=== PATIENT | female | born 1975 | race Caucasian/White ===

== ENCOUNTER 2024-11-11 02:12 | Day surgery (SDC) | payer OTHER, SELFPAY ==
[2024-11-06 09:48] VITALS: BMI 28.3
--- NOTE | 2024-11-06 10:00 | SUR.PREOP ---
Report to the Outpatient Waiting Room, entrance under the green pavilion located off [facility], at time 0630 on date 11/11/24. Planned Procedure Time: 0830.? Time changes happen often and if your time is changed the preop area will call you the afternoon before. - You and your visitor will be asked to self-screen and do not enter if you have any COVID symptoms. Please call surgeon if you need to reschedule. - A mask is optional within the hospital at this time. Patients may have clear liquids (water, carbonated beverages, clear teas, apple juice) until 3 hours prior to surgery with a maximum of 20 ounces. - No food from midnight until time of surgery and no smoking, or chewing tobacco (or any form of nicotine). No chewing gum, candy or mints. - Infants may have breast milk until 4 hours before surgery, formula 6 hours prior to surgery. - Children will be allowed to drink immediately following surgery.? If applicable, please bring a bottle or sippy cup to assist with drinking. Juice, water, soda, and popsicles are readily available.? For infants on formula, please bring formula the day of surgery.? Pacifiers are allowed. Take only the following medications with a SIP of water on the morning of surgery: levothyroxine, abilify, wellbutrin DO NOT STOP ANY OF YOUR OTHER PRESCRIPTION MEDICATIONS PRIOR TO SURGERY EXCEPT THE FOLLOWING Hold all vitamins and supplements for 3 days per anesthesiologist. Medications to discontinue per physician ____n/a___ Date to take last dose Please no make-up, nail libyan, hairspray, perfume, deodorant, or body powder the day of surgery.? No jewelry (including any body piercings) or valuables the day of surgery, leave them at home.? Please take a shower or bath the night before, or the morning of, surgery with an antibacterial soap.? Wear comfortable, loose fitting clothing.? Children are encouraged to wear pajamas. - Jewelry must be removed prior to entering the operating room.? Rings and piercings that are not removed may be cut off. - The hospital will not accept responsibility for valuables.? - Please leave all valuables, including medications, at home the day of surgery. If you are going home after surgery, a licensed sprinkler truck driver must drive you home.? - NO public transportation without another adult if you receive anesthesia. - We recommend that an adult stay with you for 24 hours following discharge. - We also recommend that you do not drive, make important decision, drink alcoholic beverages, or take any drugs that were not prescribed by your health care provider for at least 24 hours after your discharge time. For Pediatric surgeries, we recommend two adults accompany the child home. Follow any additional instructions given to you from your surgeon. Telephone instructions given to patient and asked if any additional questions and then verbalized understanding. Patient advised to call surgeon office or pre surgery nurse liaison [phone] if any additional questions.
--- OUTSIDE RECORDS SUMMARY | 2024-11-11 02:15 | XMS_ITS | Encounter Summary ---
Author Organization [facility] Address [address] [place] [address] Phone Care Team Providers Care Stove Carriage Operator Name Role Phone Felix Alves MD Primary Care Provider [phone] Reason for Visit * Reason Comments Medication Refill Encounter Details Date Type Department Care Team (Late st Contact Info) Description 01/29/2021 Refill [facility] - Family Medicine [facility] [address] [place] [address] Josue Pineda, ELECTROMECHANIC, CELLAR HAND [address] [address] Medication Refill Social History Tobacco Use Types Packs/Day Years Used Date Smoking Tobacco: Former Smokeless Tobacco: Never Alcohol Use Standard Drinks/Week Comments No 0 (1 standard drink = 0.6 oz pur e alcohol) PHQ-2 Answer Date Recorded PHQ-2 Score 0 01/15/2019 Comments No Sex and Gender Information Value Date Recorded Sex Assigned at Not on file Legal Sex Female 10:58 PM CDT Gender Identity Not on file Sexual Orientation Not on file documented as of this encounter Miscellaneous Notes * Telephone Encounter - Gardenia Reno RN - 01/31/2021 11:33 AM CDT Medication failed the protocol, provider to review and approve the medication order if appropriate. Requested Prescriptions Pending Prescriptions Disp Refills Synthroid 175 MCG Tablet [Pharmacy Med Name: SYNTHROID 175MCG TAB] 90 Tablet 3 Sig: TAKE 1 TABLET BY MOUTH DAILY Thyroid Hormones Protocol Failed - 01/29/2021 10:13 PM Failed - Normal TSH in past 12 months No results found for: TSH Passed - No test in the past 12 months or most recent test was negative Passed - Visit with relevant provider in past 12 months or upcoming 90 days Recent Visits Date Type Provider Dept 07/01/20 Office Visit Felix Alves MD [facility] 04/06/20 Telemedicine Josue Pineda APN, [facility] Showing recent visits within past 365 days and meeting all other requirements Future Appointments No visits were found meeting these conditions. Showing future appointments within next 90 days and meeting all other requirements Passed - No active on record documented in this encounter Plan of Treatment Upcoming Encounters Date Type Department Care Team (Late st Contact Info) Description 11/12/2024 9:30 AM CDT Office Visit [facility] - Family Medicine [facility] [address] [place] [address] Felix Alves MD [address] [address] documented as of this encounter Visit Diagnoses Diagnosis Hypothyroidism, unspecified type documented in this encounter Additional Health Concerns Infection Onset Date Last Indicated Resolved Time COVID - 19 Confirmed 03/14/2021 03/23/2021 021 12:16 AM ENERGY MANAGER Assessment Noted Time PHQ-9 Depression Total Score: 0 11/23/19 19 11:02 AM CDT documented as of this encounter Care Teams Stove Carriage Operator Relationship Specialty Start Date End Date Felix Alves MD [address] [address] PCP - General Family Medicine 04/19/15 documented as of this encounter
--- OUTSIDE RECORDS SUMMARY | 2024-11-11 02:15 | XMS_ITS | Encounter Summary ---
Author Organization [facility] Address [address] [place] [address] Phone Care Team Providers Care Salvage Mechanic Name Role Phone Felix Alves MD Primary Care Provider [phone] Reason for Visit * Reason Comments Medication Refill Encounter Details Date Type Department Care Team (Late st Contact Info) Description 08/29/2021 Refill [facility] [address] [place] [address] Felix Alves MD [address] [address] Medication Refill Social History Tobacco Use Types Packs/Day Years Used Date Smoking Tobacco: Former Smokeless Tobacco: Never Alcohol Use Standard Drinks/Week Comments No 0 (1 standard drink = 0.6 oz pur e alcohol) PHQ-2 Answer Date Recorded Total Score - Questions 1-9 0 03/07 Education Answer Date Recorded What is the highest level of school you have completed or the highest degree you have received? Associate degree: occupational, technical, or vocational program 03/22/2021 Comments No Sex and Gender Information Value Date Recorded Sex Assigned at Not on file Legal Sex Female 10:58 PM CDT Gender Identity Not on file Sexual Orientation Not on file documented as of this encounter Miscellaneous Notes * Telephone Encounter - Gardenia Reno RN - 08/30/2021 11:05 AM CDT Medication failed the protocol, provider to review and approve the medication order if appropriate. Requested Prescriptions Pending Prescriptions Disp Refills buPROPion (WELLBUTRIN) 300 MG TABLET SR 24 HR XL tablet [Pharmacy Med Name: buPROPion HCl ER (XL) 300 MG Oral Tablet Extended Release 24 Hour] 100 Tablet 2 Sig: TAKE 1 TABLET BY MOUTH EVERY MORNING Bupropion (6 Month Refill Only) Protocol Failed - 08/29/2021 10:49 AM Failed - Has an encounter in the past 6 months with a depression or anxiety visit diagnosis Passed - No test in the past 12 months or most recent test was negative Passed - No active on record Passed - Visit with relevant provider in past 6 months or upcoming 90 days Recent Visits Date Type Provider Dept 03/22/21 Telemedicine Vicky Rose APRN, [facility] Showing recent visits within past 182 days and meeting all other requirements Future Appointments No visits were found meeting these conditions. Showing future appointments within next 90 days and meeting all other requirements Passed - Patient has established therapy with Bupropion for at least 6 months documented in this encounter Plan of Treatment Upcoming Encounters Date Type Department Care Team (Late st Contact Info) Description 11/12/2024 9:30 AM CDT [facility] [address] [place] [address] Felix Alves MD [address] [address] documented as of this encounter Visit Diagnoses Diagnosis Depression, unspecified depression type documented in this encounter Additional Health Concerns Assessment Noted Time PHQ-9 Depression Total Score: 0 03/22/20 21 10:31 AM PHYSICS TUTOR documented as of this encounter Care Teams Salvage Mechanic Relationship Specialty Start Date End Date Felix Alves MD [address] [address] PCP - General Family Medicine 04/19/15 documented as of this encounter
--- OUTSIDE RECORDS SUMMARY | 2024-11-11 02:15 | XMS_ITS | Encounter Summary ---
Author Organization [facility] Address [address] [place] [address] Phone Care Team Providers Care Waste Recycler Name Role Phone Felix Alves MD Primary Care Provider [phone] Reason for Visit * Reason Comments Medication Refill Encounter Details Date Type Department Care Team (Late st Contact Info) Description 12/19/2021 Refill [facility] [address] [place] [address] Felix Alves MD [address] [address] Medication Refill Social History Tobacco Use Types [...] Telephone Encounter - Gardenia Reno RN - 12/20/2021 9:48 AM CDT Medication failed the protocol, provider to review and approve the medication order if appropriate. Requested Prescriptions Pending Prescriptions Disp Refills Synthroid 175 MCG Tablet [Pharmacy Med Name: SYNTHROID 175MCG TAB] 100 Tablet 0 Sig: TAKE 1 TABLET BY MOUTH DAILY Thyroid Hormones Protocol Failed - 12/19/2021 2:33 PM Failed - Normal TSH in past 12 months No results found for: TSH Passed - No test in the past 12 months or most recent test was negative Passed - Visit with relevant provider in past 12 months or upcoming 90 days Recent Visits Date Type Provider Dept 03/22/21 Telemedicine Vicky Rose APRN, RAILROAD CAR REPAIR SUPERVISOR [facility] Showing recent visits within past 365 days [...] Description 11/12/2024 9:30 AM CDT Office Visit [facility] - Family Medicine [facility] [address] [place] [address] Felix Alves MD [address] [address] documented as of this encounter Visit Diagnoses Diagnosis Hypothyroidism, unspecified type documented in this encounter Additional Health Concerns Assessment Noted Time PHQ-9 Depression Total Score: 0 03/22/20 21 10:31 AM ELEMENTARY SUPERVISOR documented as of this encounter Care Teams Waste Recycler Relationship Specialty Start Date End Date Felix Alves MD [address] [address] PCP - General Family Medicine 04/19/15 documented as of this encounter
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
--- OUTSIDE RECORDS SUMMARY | 2024-11-11 02:16 | XMS_ITS | Encounter Summary ---
Author Organization [facility] Address [address] [place] [address] Phone Care Team Providers Care Suede Cleaner Name Role Phone Felix Alves MD Primary Care Provider [phone] Reason for Visit * Reason Comments Medication Refill Encounter Details Date Type Department Care Team (Late st Contact Info) Description 03/03/2022 Refill [facility] Family Medicine [facility] [address] [place] [address] Felix Alves MD [address] [address] Medication Refill Social History Tobacco Use Types [...] encounter Miscellaneous Notes * Telephone Encounter - Monisha Mims RMA - 03/06/2022 2:20 PM CDT Pt declined scheduling at this time * Telephone Encounter - Felix Alves MD - 03/03/2022 11:39 AM CDT Schedule her to see me or Josue for follow-up. Thanks! * Telephone Encounter - Gardenia Reno RN - 03/03/2022 11:32 AM CDT Needs appt with PCP/PIZZA HUT ASSISTANT * Telephone Encounter - Gardenia Reno RN - 03/03/2022 11:32 AM CDT Medication failed the protocol, provider to review and approve the medication order if appropriate. Requested Prescriptions Pending Prescriptions Disp Refills levothyroxine (SYNTHROID) 175 MCG Tablet [Pharmacy Med Name: LEVOTHYROXINE 175 MCG TABLET] 30 Tablet 0 Sig: TAKE 1 TABLET BY MOUTH EVERY DAY Thyroid Hormones Protocol Failed - 03/03/2022 9:34 AM Failed - Normal TSH in past 12 months No results found for: TSH Passed - No test in the past 12 months or most recent test was negative Passed - Visit with relevant provider in past 12 months or upcoming 90 days Recent Visits Date Type Provider Dept 03/22/21 Telemedicine Vicky Rose APRN, RIB PULLER [facility] Showing recent visits within past [...] Description 11/12/2024 9:30 AM CDT Office Visit [facility] - Family Medicine - [place] [address] [place] [address] Felix Alves MD [address] [address] documented as of this encounter Visit Diagnoses Diagnosis Hypothyroidism, unspecified type documented in this encounter Additional Health Concerns Assessment Noted Time PHQ-9 Depression Total Score: 0 03/22/20 21 10:31 AM DIRECTOR GEOPHYSICAL LABORATORY documented as of this encounter Care Teams Suede Cleaner Relationship Specialty Start Date End Date Felix Alves MD [id number] [address] PCP - General Family Medicine 04/19/15 documented as of this encounter
--- OUTSIDE RECORDS SUMMARY | 2024-11-11 02:16 | XMS_ITS | Referral Summary ---
Author Organization [address] Address [address] [place] [id number] Care Team Providers Care Manugrapher Name Role Phone Felix Alves MD Primary Care Provider [phone] Hannah Dallas HHA Unavailable Allergies Active Allergy Reactions Criticality Noted Date Comments Ciprofloxacin Rash Reaction: Rash, Latex Itching Low Reaction: Itching, Medications buPROPion XL (WELLBUTRIN XL) 300 mg 24 hr tablet 06/25/2020 Active Synthroid 175 mcg tablet 06/26/2020 Active cyclobenzaprine (FLEXERIL) 5 mg tablet TAKE 1 TABLET BY MOUTH THREE TIMES A DAY NEEDED FOR MUSCLE SPASMS 07/01/2020 Active sertraline (ZOLOFT) 50 mg tablet Take 1 tablet (50 mg total) by mouth daily 08/01/2022 Active Active Problems Problem Noted Date Diagnosed Date Chest pain 07/01/2020 Mood disorder 11/22/2018 Obesity, unspecified 12/11/2016 Chronic fatigue 12/31/2015 Hypothyroidism 09/20/2013 Overview (07/24/2020): HYPOTHYROIDISM NOS Social History Tobacco Use Types Packs/Day Years Used Date Smoking Tobacco: Never Tobacco Cessation:Counseling Given: Not Answered Alcohol Use Standard Drinks/Week Comments No 0 (1 standard drink = 0.6 oz pur e alcohol) Comments Unknown Sex and Gender Information Value Date Recorded Sex Assigned at Not on file Legal Sex Female 2:52 PM MOTORCYCLE TESTER Gender Identity Not on file Sexual Orientation Not on file Last Filed Vital Signs Vital Sign Reading Time Taken Comments Blood Pressure 128/82 09/26/2022 10:54 AM CDT Pulse 67 09/26/2022 10:54 AM CDT Temperature 36.7 C (98 F) 09/26/2022 10:54 AM CDT Respiratory Rate 16 09/26/2022 10:54 AM CDT Oxygen Saturation 98% 09/26/2022 10:54 AM CDT Inhaled Oxygen Concentration - - Weight 77.1 kg (170 lb) 11/22/2022 1:02 PM CDT Height 160 cm (5' 3) 11/22/2022 1:02 PM CDT Body Mass Index 30.11 11/22/2022 1:02 PM CDT Plan of Treatment Not on file Procedures Procedure Name Priority Date/Time Associated Diagnosis Comments DIAGNOSTIC MAMMOGRAM BILATERAL W KAPIL Schedule Routine, Read Routine (OP Routine) 10/03/2022 11:07 AM CDT Localized enlarged lymph nodes from Last 3 Months or Most Recently Relevant to Health Maintenance Results * Diagnostic Mammogram Bilateral W Kapil (10/03/2022 11:07 AM CDT) Anatomical Region Laterality Modality Breast Bilateral Mammography 10/03/2022 12:1 0 PM CDT Impressions 10/03/2022 12:10 PM CDT 1. No suspicious findings identified on mammogram or sonogram to account for the palpable abnormality of concern in the axillary tail of the left breast. Only prominent fatty tissue is seen without suspicious masses. No additional specific workup or follow-up is recommended for this finding. Any further management at this time should be based on clinical assessment. 2. No suspicious findings are identified on mammogram or sonogram to account for patient's bilateral nipple discharge. The patient reports this is intermittent, and mostly occurs around her period. This is almost certainly benign and physiologic. The patient was instructed to consult in case the discharge becomes clear or bloody. 3. Probably benign oval hypoechoic mass with circumscribed margins at the 7 o'clock position of the right breast 7 cm from the nipple, measuring 3 mm. Follow-up is recommended in 6 months with right diagnostic mammogram and sonogram to document stability. BI-RADS: 3 - Probably benign. I discussed the findings and recommendations with the patient at time of the examination. Electronically signed by: ROCAEL Corey 10/03/2022 12:10 PM CDT EXAMINATION: US BREAST BILATERAL LIMITED, DIAGNOSTIC MAMMOGRAM BILATERAL W KAPIL ORDERING HEALTHCARE PROVIDER: HANNAH DALLAS HISTORY: 46-year-old woman comes in today for evaluation of a lump in the left breast, and bilateral nipple discharge. The patient reports palpable lump in the axillary tail of the left breast has been present for approximately 13 years with minimal change. The nipple discharge is described as beige and color. COMPARISON: Bilateral diagnostic mammograms dated 08/20/2009. TECHNIQUE: CC and MLO views of both breasts were obtained with digital technique using digital breast tomosynthesis with C view. Computer aided detection was utilized. Targeted sonographic examination of both breasts was performed real-time grayscale images and color Doppler. FINDINGS: MAMMOGRAPHIC FINDINGS: There is scattered fibroglandular tissue There is a small oval low-density mass with circumscribed margins at approximately the 7 o'clock position of the right breast 7 cm from the nipple, measuring approximately 4 mm. There is no associated architectural distortion or suspicious macro calcifications. No other suspicious findings are identified in the right breast. A marker was placed on the left breast over the area of probable concern, which corresponds to the axillary tail. There is prominent fatty tissue at this level without new suspicious findings. Overall, there are no new suspicious findings in the left breast. SONOGRAPHIC FINDINGS: Targeted sonographic examination of the left breast is performed at the 2 o'clock position 19 cm from the nipple, corresponding to the area of palpable concern. At this level only benign fatty tissue and fibroglandular tissue is seen without suspicious solid or cystic masses. Targeted sonographic examination of the subareolar aspects of the right and left breasts demonstrates no abnormal ducts, and no suspicious masses. Targeted sonographic examination of the right breast at the 7 o'clock position 7 cm from the nipple demonstrates an oval hypoechoic mass with circumscribed margins that is wider than taller, measuring 3 x 3 x 2 mm. There is no posterior acoustic enhancement or shadowing, and no internal blood flow seen on color Doppler. Hannah Dallas HHA IMG MAMMO PROCEDURES Fi nal Result from Last 3 Months or Most Recently Relevant to Health Maintenance Insurance BLUE ACCESS OOS BLUE ACCESS OOS BLUE ACCESS OOS Care Teams Manugrapher Relationship Specialty Start Date End Date Felix Alves MD [address] [facility] [address] [address] PCP - General 08/28/07 Hannah Dallas NP 2 [facility] [address] [address] Nurse Practitioner Obstetrics and Gynecology 10/10/22
--- OUTSIDE RECORDS SUMMARY | 2024-11-11 02:16 | XMS_ITS | Clinical Summary ---
Author Organization [address] Address [address] [place] [id number] Care Team Providers Care Global Upstream Marketing Manager Name Role Phone Felix Alves MD Primary Care Provider [phone] Hannah Dallas GRIEVANCE COORDINATOR Unavailable [phone] Allergies Active Allergy Reactions Criticality Noted Date [...] 12/31/2015 Hypothyroidism 09/20/2013 Overview (07/24/2020): HYPOTHYROIDISM NOS Surgical History Surgery Date Site/Laterality Comments CHOLECYSTECTOMY Cholecystectomy TONSILLECTOMY Tonsillectomy OTHER SURGICAL HISTORY D&C TUBAL LIGATION 05/07/2006 Bilateral tubal ligation OTHER SURGICAL HISTORY section x3 Medical History Medical History Date Comments Hypothyroidism hypothyroidism Hx Other Medical Lt bunion Hx Other Medical myringectomy Anxiety disorder Anxiety Hx Other Medical Septoplasty Family History Medical History Relation Name Comments Other Father Alive and well; Other Mother Alive and well; Breast cancer Paternal Grandmother Other Sister 2 Alive and well; Relation Name Status Comments Father Alive Mother Alive Paternal Grandmother Sister 1 Alive Sister 2 Social History Tobacco Use Types Packs/Day Years Used Date Smoking Tobacco: Never Tobacco Cessation:Counseling Given: Not Answered Alcohol Use Standard Drinks/Week Comments No 0 (1 standard drink = 0.6 oz pur e alcohol) Comments Unknown Sex and Gender Information Value Date Recorded Sex Assigned at Not on file Legal Sex Female 2:52 PM MEDICAL RECORD SPECIALIST Gender Identity Not on file Sexual Orientation Not on file Obstetrics History Para Term AB IAB SAB Ectopic Multiple Livin g Live Births 3 3 3 Date Outcome GA Total Labor Labor/2nd/3rd Weight Sex Type Anes PTL Summer A1 A5 Name Clin Term Term Term Last Filed Vital Signs Vital Sign Reading [...] 11/22/2022 1:02 PM CDT Plan of Treatment Health Maintenance Due Date Last Done Comments Cervical Cancer Screening 1977 Colon Cancer Screening-Colonoscopy 1977 Depression Screening 1977 Hepatitis C Screening 1977 DTaP/Tdap/Td Vaccine (1 - Tdap) 1988 Hepatitis B Screening 11/19/1995 Regular Well Visit/Exam 18-64 11/19/1995 Breast Cancer Screening-Mammogram 10/04/2023 10/03/2022, 10/03/2022 Influenza Vaccine (Season Ended) 2025 04/05/2015 HPV Vaccines Aged Out No longer eligi ble based on patient's age to complete this topic Pneumococcal vaccine <65 Aged Out No longer eligible based on patient's age to complete this topic Procedures Procedure Name Priority Date/Time Associated Diagnosis [...] flow seen on color Doppler. Hannah Dallas NP IMG MAMMO PROCEDURES Fi nal Result from Last 3 Months or Most Recently Relevant to Health Maintenance Insurance [facility] O[facility] evly ACCESS OOS [facility] Care Teams Global Upstream Marketing Manager Relationship Specialty Start Date End Date Felix Alves MD [address] [address] PCP - General 08/28/07 Hannah Dallas NP 2 [facility] [address] [place] [address] Nurse Practitioner Obstetrics and Gynecology 10/10/22
--- OUTSIDE RECORDS SUMMARY | 2024-11-11 02:16 | XMS_ITS | Encounter Summary ---
Author Organization [facility] Address [address] [place] [address] Phone Care Team Providers Care Combination Worker Name Role Phone Felix Alves MD Primary Care Provider [phone] Reason for Referral * Radiology Services (Routine) - Closed Specialty Diagnoses / Procedures Referred By Contac t Referred To Contact Radiology Diagnoses Abnormal mammogram Procedures AMANDA DIAG BILATERAL DIGITAL W CAD W TRISTAN Felix Alves MD #[address] [address] Phone: tel: fax: Referral ID Status Reason Start Date Expiration Date Visits Re quested Visits Authorized [id number] Closed 08/26/2024 1 1 Encounter Details Date Type Department Care Team (Late st Contact Info) Description 08/26/2024 Transcribe Orders [facility] Mammography [address] [place] [address] Felix Alves MD #[address] [address] Abnormal mammogram (Primary Dx) Social History Tobacco Use Types Packs/Day Years Used Date Smoking Tobacco: Former Smokeless Tobacco: Never Alcohol Use Standard Drinks/Week Comments No 0 (1 standard drink = 0.6 oz pur e alcohol) PHQ-2 Answer Date Recorded Total Score - Questions 1-9 8 03/0 08/2024 Education Answer Date Recorded What is the [...] on file documented as of this encounter Plan of Treatment Upcoming Encounters Date Type Department Care Team (Late st Contact Info) Description 11/12/2024 9:30 AM CDT Office Visit [facility] - Family Medicine - [place] [address] [place] [address] Felix Alves MD [address] [address] documented as of this encounter Results * AMANDA DIAG BILATERAL DIGITAL W CAD W TRISTAN (08/23/2024 8:50 AM CDT) Anatomical Region Laterality Modality breast Bilateral Mammography 08/23/2024 8:30 AM CDT Narrative 09/01/2024 2:46 PM CDT - AMANDA DIAG BILATERAL DIGITAL W CAD W TRISTAN BILATERAL DIGITAL DIAGNOSTIC MAMMOGRAM 3D/2D WITH CAD WITH MEDIOLATERAL OBLIQUE CRANIOCAUDAL: 08/23/2024 The study was acquired using digital technology and interpreted from soft copy. Current study was also evaluated with ICAD version 7.2. 2D digital mammographic views, as well as 3D digital tomosynthesis were performed in the CC and MLO projections. CLINICAL: Diagnostic study. Diagnostic follow-up per outside imaging recommendations of right breast; BIRADS-3. Annual due. No personal history of cancer. No family history of breast cancer. COMPARISONS: Comparison is made to exams dated: 10/03/2022 [facility] and 07/03/2011 [facility]. BREAST TISSUE:There are scattered areas of fibroglandular density. FINDINGS: This examination was initially performed as a screening mammogram, but was changed to a diagnostic mammogram as it became evident that the prior examination was a BI-RADS 3. There is a stable subcentimeter mass at the 7 o'clock position of the right breast, middle depth. No other significant masses, calcifications, or other findings are seen in either breast. There has been no significant interval change. IMPRESSION: INCOMPLETE: NEED ADDITIONAL IMAGING EVALUATION Stable mass in the right breast at the 7 o'clock position. An immediate follow-up is recommended with right breast sonography. The results and recommendations were discussed with the patient. Electronically signed by: Uma Espinosa M.D. ll/:09/01/2024 11:37:48 Burrer Machine(s): RT Israel(R)(M), [facility] letter sent: Additional Imaging Reading location: [facility] Mammogram BI-RADS: Category 0: Incomplete: Need Additional Imaging Evaluation Procedure Note Uma Espinosa MD - 09/01/2024 - AMANDA DIAG BILATERAL DIGITAL W CAD W TRISTAN BILATERAL DIGITAL DIAGNOSTIC MAMMOGRAM 3D/2D WITH CAD WITH MEDIOLATERAL OBLIQUE CRANIOCAUDAL: 08/23/2024 The study was acquired using digital technology and interpreted from soft copy. Current study was also evaluated with ICAD version 7.2. 2D digital mammographic views, as well as 3D digital tomosynthesis were performed in the CC and MLO projections. CLINICAL: Diagnostic study. Diagnostic follow-up per outside imaging recommendations of right breast; BIRADS-3. Annual due. No personal history of cancer. No family history of breast cancer. COMPARISONS: Comparison is made to exams dated: 10/03/2022 [facility] and 07/03/2011 [facility]. BREAST TISSUE:There are scattered areas of fibroglandular density. FINDINGS: This examination was initially performed as a screening mammogram, but was changed to a diagnostic mammogram as it became evident that the prior examination was a BI-RADS 3. There is a stable subcentimeter mass at the 7 o'clock position of the right breast, middle depth. No other significant masses, calcifications, or other findings are seen in either breast. There has been no significant interval change. IMPRESSION: INCOMPLETE: NEED ADDITIONAL IMAGING EVALUATION Stable mass in the right breast at the 7 o'clock position. An immediate follow-up is recommended with right breast sonography. The results and recommendations were discussed with the patient. Electronically signed by: Uma Espinosa M.D. ll/:09/01/2024 11:37:48 Burrer Machine(s): Melody Almanza RT(R)(M), [facility] letter sent: Additional Imaging Reading location: [facility] Mammogram BI-RADS: Category 0: Incomplete: Need Additional Imaging Evaluation us Felix Alves MD IMG MAMMO ORDERABLES Kathi l Result documented in this encounter Visit Diagnoses Diagnosis Abnormal mammogram Abnormal mammogram, unspecified Abnormal mammogram- Primary Abnormal mammogram, unspecified documented in this encounter Additional Health Concerns Assessment Noted Time PHQ-9 Depression Total Score: 8 07/09/19 25 11:12 AM ORDER FULFILLMENT SPECIALIST documented as of this encounter Care Teams Combination Worker Relationship Specialty Start Date End Date Felix Alves MD [address] [place] [address] PCP - General Family Medicine 04/19/15 documented as of this encounter
--- OUTSIDE RECORDS SUMMARY | 2024-11-11 02:16 | XMS_ITS | Encounter Summary ---
Author Organization [facility] Address [address] [place] [address] Phone Care Team Providers Care Pricing Strategist Name Role Phone Felix Alves MD Primary Care Provider [phone] Reason for Visit * Reason Comments Medication Refill Encounter Details Date Type Department Care Team (Late st Contact Info) Description 04/03/2022 Refill [facility] - Family Medicine [facility] [address] [place] [address] Felix Alves MD #[address] [address] Medication Refill Social History Tobacco Use Types [...] encounter Miscellaneous Notes * Telephone Encounter - Brenda Hein RN - 04/03/2022 11:35 AM CASTING ASSOCIATE Patient needs appointment with provider. ING ASSOCIATE documented in this encounter Plan of Treatment Upcoming Encounters Date Type Department Care Team (Late st Contact Info) Description 11/12/2024 9:30 AM CDT Office Visit [facility] - Family [facility] [address] [place] [address] Felix Alves MD #[address] [address] documented as of this encounter Visit Diagnoses Diagnosis Hypothyroidism, unspecified type documented in this encounter Additional Health Concerns Assessment Noted Time PHQ-9 Depression Total Score: 0 03/22/20 21 10:31 AM CASTING ASSOCIATE documented as of this encounter Care Teams Pricing Strategist Relationship Specialty Start Date End Date Felix Alves MD #[address] [address] PCP - General Family Medicine 04/19/15 documented as of this encounter
--- OUTSIDE RECORDS SUMMARY | 2024-11-11 02:16 | XMS_ITS | Data Portability ---
Author Organization [facility] Address [address] [place] [address] [place] [address] Assessment Encounter Date Assessment Date Assessment LastModified by Organization Details LastModified Time 08/28/2022 08/28/2022 Annual gynecological exam performed. Patient will come back in a year unless there are new symptoms. [email or web address] Not available 08/28/2022 11:01:05 10/08/2023 10/08/2023 Annual gynecological exam performed. Patient will come back in a year unless there are new symptoms. Not available 10/08/2023 09:16:01 Plan of Treatment Reminders Order Date Submit Date Provider Last Modified By Organization Details Last Modified Time Details Appointments SURG Hysterosc opy 2024 08:30A Ac DEL REAL MD Not available Not available Not available Lab None recorded. Referral None recorded. Procedures None recorded. Surgeries hysterosc opy, with endometri al ablation (SURG) 2024 025 [email or web address] Shaan Del Real MD, [address], [place], [address], 11/10/2024 15:00:58 Imaging US, pelvis 2024 025 [email or web address] [facility], [address], [address], [place], [address], 08/12/2024 13:38:03 US, transvagi nal 2024 025 MAGED Emery, [address], [address], [place], [address], 08/12/2024 14:12:10 MAMMO, diagnosti c, digital, bilateral 2022 023 [facility], [address] [facility] , [place], [address], 10/03/2022 13:17:05 US, breast, bilateral , w/ axilla 2022 023 [facility], [address] [facility] , [place], [address], 10/03/2022 13:15:42 Medication Orders Nextstell is 3 mg-14.2 mg (28) tablet 2024 025 [id number], [address], [place], [id number], 07/21/2024 13:58:06 Valtrex 1 gram tablet 2023 024 [facility]/Pharmacy #[id number], [address], [place], [address], 10/08/2023 11:46:22 fluconazo le 150 mg tablet [address]/Pharmacy #[id number], [address], [place], [address], 10/08/2023 09:16:15 Bactrim DS 800 mg-160 mg tablet [address]/Pharmacy #[id number], [address], [place], [address], 10/08/2023 09:16:20 Patient TargetsNo targets recorded. Patient InstructionsNo instructions recorded. Reason for Referral None Reported. Results Created Date Observation Date Name Description Value Unit Range Abnormal Flag Note LastModifiedBy Organization Detail LastModifiedTime 08/29/19 23 08/28/2022 IMAGE GUIDE D PAP AND HPV REGAR DLESS image guided Pap, HPV regardless of Pap result SEE RESULT S BELOW CASE REPOR T: Cytol ogy Gynec ologi radha Repor t Case: [id number] Autho shane carmen Provi arik: Hannah Dallas, STACIE Elkins cted: 08/28 1518 Order ing Locat ion: [place] Patho ksenia Recei dinesh: 08/29 0117 First Scree n: Wanda Amaral Speci men: Scree vaibhav Pap - Image d, Cervi x STATE MENT OF ADEQU ACY: Satis facto ry for evalu ation Trans forma tion zone compo nent prese nt FINAL DIAGN OSIS: Negat tony for Intra epith elial Patria montoya or Calvin john (NIL) . Elect ricardo ledesma aura d by Wanda Amaral on 2022 at 6:03 PM ----- ----- ----- ----- ----- ----- ----- ----- ----- ----- ----- ----- ----- ----- ----- ----- ----- ---- HPV RESUL TS: HPV mRNA E6/E7 : No HPV mRNA Detec shankar NOTE: This high risk HPV mRNA assay detec ts fourt een high- risk HPV types (16, 18, 31, 33, 35, 39, 45, 51, 52, 56, 58, 59, 66, 68) witho ut diffe renti ation . COMME NT: Slide scree cecilia moustapha wood due to rejec tion by the Thinp rep Imagi ng Syste m. CLINI RADHA INFOR MATIO N: Menst rual Statu s: LMP (if appli cable ): Clini radha Histo ry/Pr eviou s Pap: Type of Neopl fátima (if appli cable ): Signi fican t Clini radha Findi ngs: Other Histo ry: Hormo binu (if appli cable ): PAP EDUCA PRAVIN L NOTE: The Pap Test is a scree vaibhav test with an inher ent false negat tony rate. Liqui d-bas ed sampl ing may decre ase, but will not elimi penny, false negat tony resul ts. A negat tony resul t does not precl ude the prese nce and/o r devel opmen t of disea se, since the prese nce of abnor mal cells in the sampl e depen ds on the locat ion of the lesio n and sampl ing techn ique. Benito nued regul ar scree vaibhav is the best metho d of cance r preve ntion . If repor shankar cytol ogic findi ng do not corre late with physi radha and/o r histo rical findi ngs, furth er inves tigat ion is recom isak d, as clini tate rosado nted. Not Available [facility] (Lab) [address] [facility], [place], [address], 08/30/2022 19:05:01 08/29/19 23 08/28/2022 TRICH OMONA S VAGIN MAURISIO (RRNA ) trichomonas vaginalis ribosomal RNA (rrna) Negati ve negati ve Not Available [facility] (Lab) [address] [facility], [place], [address], 08/30/2022 19:05:01 08/29/19 23 08/28/2022 CT/GC (PATEL) , THINP REP VIAL chlamydia trachomatis, PCR Negati ve negati ve Not Available [facility] (Lab) [address] [facility], [place], [address], 08/30/2022 19:05:02 08/29/19 23 08/28/2022 CT/GC (PATEL) , THINP REP VIAL neisseria gonorrhoeae, PCR Negati ve negati ve Not Available [facility] (Lab) [address] [place], [address], 08/30/2022 19:05:02 08/29/19 23 08/28/2022 VAGIN ITIS/ VAGIN OSIS, DNA PROBE brown sp. detection, direct probe Negati ve negati ve Not Available [facility] (Lab) [address] [facility], [place], [address], 08/30/2022 19:05:02 08/29/19 23 08/28/2022 VAGIN ITIS/ VAGIN OSIS, DNA PROBE gardnerella vag. detection, direct probe Positi ve negati ve abnormal Not Available [facility] (Lab) [address] [facility], [place], [address], 08/30/2022 19:05:02 08/29/19 23 08/28/2022 VAGIN ITIS/ VAGIN OSIS, DNA PROBE trichomonas vag. detection, direct probe Negati ve negati ve Not Available [facility] (Lab) [address] [facility], [place], [address], 08/30/2022 19:05:02 10/08/19 24 10/08/2023 IMAGE GUIDE D PAP AND HPV REGAR DLESS image guided Pap, HPV regardless of Pap result SEE RESULT S BELOW CASE REPOR T: Cytol ogy Gynec ologi radha Repor t Case: [id number] Autho shane carmen Provi arik: Hannah Dallas, STACIE Colle cted: 10/07 1047 Order ing Locat ion: [place] Patho logy Recei dinesh: 10/08 1050 First Scree n: Sourav Mac , CT Speci men: Scree vaibhav Pap - Image d, Cervi x STATE MENT OF ADEQU ACY: Satis facto ry for evalu ation Trans forma tion zone compo nent prese nt ----- ----- ----- ----- ----- ----- ----- ----- ----- ----- ----- ----- ----- ----- ----- ----- ----- ---- FINAL DIAGN OSIS: Negat tony for Intra epith elial Patria n or Calvin john (NIL) . Shift in grant sugge stive of bacte rial vagin osis. Elect ricardo cast by Sourav Mac CT on 024 at 3:00 PM ----- ----- ----- ----- ----- ----- ----- ----- ----- ----- ----- ----- ----- ----- ----- ----- ----- ---- HPV RESUL TS: HPV mRNA E6/E7 : No HPV mRNA Detec shankar NOTE: This high risk HPV mRNA assay detec ts fourt een high- risk HPV types (16, 18, 31, 33, 35, 39, 45, 51, 52, 56, 58, 59, 66, 68) witho ut diffe renti ation . COMME NT: This speci men was revie wed by a Cytot echno logis t and/o r Patho logis t (as indic ated in this repor t) after evalu ation using the Thinp rep Imagi ng Syste m. CLINI RADHA INFOR MATIO N: Menst rual Statu s: LMP (if appli cable ): Clini radha Histo ry/Pr eviou s Pap: Type of Neopl fátima (if appli cable ): Signi fican t Clini radha Findi ngs: Other Histo ry: Hormo binu (if appli cable ): PAP EDUCA PRAVIN L NOTE: The Pap Test is a scree vaibhav test with an inher ent false negat tony rate. Liqui d-bas ed sampl ing may decre ase, but will not elimi penny, false negat tony resul ts. A negat tony resul t does not precl ude the prese nce and/o r devel opmen t of disea se, since the prese nce of abnor mal cells in the sampl e depen ds on the locat ion of the lesio n and sampl ing techn ique. Benito nued regul ar scree vaibhav is the best metho d of cance r preve ntion . If repor shankar cytol ogic findi ng do not corre late with physi radha and/o r histo rical findi ngs, furth er inves tigat ion is recom isak d, as ryley rosado nted. Not Available [facility] (Lab) [address] [facility], [place], [address], 10/10/2023 16:03:02 07/15/19 25 07/14/2024 CT/GC AND TRICH OMONA S VAGIN MAURISIO (RRNA ), URINE chlamydia trachomatis, PCR Negati ve negati ve Not Available [facility] (Lab) [address] [facility], [place], [address], 07/15/2024 12:38:07 07/15/19 25 07/14/2024 CT/GC AND TRICH OMONA S VAGIN MAURISIO (RRNA ), URINE neisseria gonorrhoeae, PCR Negati ve negati ve Not Available [facility] (Lab) [address] [facility], [place], [address], 07/15/2024 12:38:07 07/15/19 25 07/14/2024 CT/GC AND TRICH OMONA S VAGIN MAURISIO (RRNA ), URINE trichomonas vaginalis ribosomal RNA (rrna) Negati ve negati ve Not Available [facility] (Lab) [address] [facility], [place], [address], 07/15/2024 12:38:07 10/04/19 23 10/03/2022 MAMMO , diagn ostic , digit al, blanche hernandez No observ ation record ed. [email or web address] [facility] [address] [place], [place], [address], 10/12/2022 09:52:01 10/04/19 23 10/03/2022 US, vladislav t, blanche hernandez, w/ brandy a No observ ation record ed. [email or web address] [facility] [address], [place], [address], 10/12/2022 09:52:02 08/13/19 25 08/12/2024 US, edmar smith No observ ation record ed. [email or web address] [facility] [address], [place], [address], 08/12/2024 14:11:59 08/13/19 25 08/12/2024 US, trans vagin al No observ ation record ed. [email or web address] [facility] [address], [place], [address], 08/12/2024 14:12:10 08/13/19 25 08/12/2024 US, pelvi s No observ ation record ed. [email or web address] [facility] [address], [place], [address], 08/12/2024 22:21:23 Result Notes None recorded. Problems Name Problem SNOMED Code Status Onset Date Resolution Date Notes Provider Name and Address Organization Details Recorded Time Syphilis test finding 940087399 Completed 201701/18/2021 Encntr screen for infectio ns w sexl mode of transmis s;Record ed Elsewher e: No Locat ion: [facility] S ource: EHR [employer] Feeder roe: N Practi ce ID: [id number] [place] lable Time: 04:15:00 PM Rula lunsford [facility] 17:53:[address] Concept Completed 201601/18/2021 Encntr for general adult medical exam w/o abnormal findings ;Recorde d Elsewher e: No Locat ion: [facility] S ource: EHR [employer] Feeder roe: N Practi ce ID: [id number] [place] lable Time: 03:00:00 PM Rula lunsford [facility] 17:53:29 Infectio n screenin g Completed 201701/18/2021 Encounte r for screenin g for oth infec/pa rastc diseases ;Recorde d Elsewher e: No Locat ion: [facility] S ource: EHR [employer] Feeder roe: N Practi ce ID: [id number] [place] lable Time: 04:15:00 PM Rula lunsford [facility] 17:53:24 Breast lump [id number] Completed 201601/18/2021 Unspecif ied lump in breast;R ecorded Elsewher e: No Locat ion: [facility] S ource: EHR [employer] Feeder roe: N Toniti ce ID: [id number] [place] lable Time: 01:00:00 PM Rula lunsford [facility] 17:53:38 Speciali zed medical examinat ion Completed 201301/18/2021 Gynecolo gical Examinat ion;Stevo rded Elsewher e: No Locat ion: [facility] S ource: EHR [employer] Feeder roe: N Toniti ce ID: [id number] [place] lable Time: 10:30:00 AM Rula lunsford [facility] 17:53:35 Screenin g for malignan t neoplasm of cervix Completed 201301/18/2021 Screenin g for malignan t neoplasm s of the cervix;R ecorded Elsewher e: No Locat ion: [facility] S ource: EHR [employer] Feeder roe: N Toniti ce ID: [id number] [place] lable Time: 10:30:00 AM Rula lunsford [facility] 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 17:53:32 Acute vaginiti s [id number] Completed 201701/18/2021 Vulvovag initis;R ecorded Elsewher e: No [facility] [employer] Feeder roe: N Toniti ce ID: [id number] [place] lable Time: 04:15:00 PM Rula lunsford [facility] 17:53:25 Ulcerati on of vulva [id number] Completed 201701/18/2021 Ulcerati on of vulva;Re corded Elsewher e: No Locat ion: [facility] S ource: EHR [employer] Feeder roe: N Practi ce ID: [id number] [place] lable Time: 09:45:00 AM Rula lunsford [facility] 17:53:37 Vaginola bial hernia Completed 201701/18/2021 Other specifie d noninfla mmatory disorder s of vagina;R ecorded Elsewher e: No Locat ion: [facility] S ource: EHR [employer] Feeder roe: N Toniti ce ID: [id number] [place] lable Time: 04:15:00 PM Rula lunsford [facility] 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 17:53:31 Problem Notes None recorded. Procedures Surgical History Date Name Laterality Status Provider Name and Address Organization Details Recorded Time 10/08/19 24 Date of Last Pap Smear completed Mariam Kidd [facility] 08/27/2024 18:02:04 05/07/19 09 reconstruction of nose completed Rula Joseph [facility] 01/19/2021 09:30:48 05/07/19 08 Tonsillectomy completed Shabana Lopez [facility] 10/08/2023 10:11:35 05/07/19 07 ligation of bilateral fallopian tubes completed [facility] 01/18/2021 18:00:18 05/07/19 07 section completed [facility] 01/18/2021 18:00:43 05/07/19 05 section completed [facility] 01/18/2021 18:00:40 05/07/18 98 section completed [facility] 01/18/2021 18:00:37 Imaging Results None recorded. Procedure Notes None recorded. Medical Equipment None Reported. Allergies Allergen ID Allergen Name Allergen Category Reaction Reaction Severity Criticality Documentation Date Start Date Code Code System Note Provider Name and Address Organization Details Recorded Time 97448 ciproflox acin medicatio n Not available Not available Not available 04/23/[address] [facility] 09:29:27 Medications Name Sig Start Date Stop Date Status Note LastModified by Organization Details LastModified Time buspirone 5 mg tablet TAKE 1 TABLET BY MOUTH TWICE DAILY active Not Available Not Available No t Available levothyro xine 175 mcg tablet TAKE 1 TABLET BY MOUTH EVERY DAY 10/07 completed Not Available Not Available Not Available ibuprofen 800 mg tablet TAKE 1 TABLET BY MOUTH EVERY 8 HOURS NEEDED FOR PAIN active Not Available Not Available No t Available fluconazo le 150 mg tablet TAKE 1 TABLET BY ORAL ROUTE NOW, REPEAT IN 7 DAYS 10/07 completed Not Available Not Available Not Available valacyclo vir 1 gram tablet TAKE 1 TABLET BY MOUTH EVERY DAY FOR 5 DAYS 2024 active Not Available Not Available Not Avai lable Keflex 500 mg capsule take 1 capsule by oral route every 12 hours 01/18 completed Prescrib ed Emilyher e: No Locat ion: Aline hoskins [facility] M odify By: [email or web address] Encounte r DateTime : 05/02/20 18 09:45:00 AM Not Available Not Available Not Available metronida zole 0.75 % (37.5 mg/5 gram) vaginal gel Insert 1 applicat orful every day by vaginal route at bedtime for 5 days. 10/07 completed Not Available Not Available Not Available lidocaine 4 % topical cream APPLY TO AFFECTED AREA Q2-4HRS TOPICALL Y PRN X MAX OF 5 DAYS 08/28 completed Not Available Not Available Not Available topiramat e 25 mg tablet TAKE 1 TABLET BY MOUTH EVERY DAY 08/28 completed Not Available Not Available Not Available phentermi ne 37.5 mg tablet TAKE 1 TABLET BY MOUTH EVERY DAY 08/28 completed Not Available Not Available Not Available valacyclo vir 500 mg tablet Take 1 tablet twice a day by oral route for 3 days. 08/28 completed Not Available Not Available Not Available sulfameth oxazole 800 mg-trimet hoprim 160 mg tablet TAKE 1 TABLET BY MOUTH EVERY 12 HOURS FOR 5 DAYS 10/07 completed Not Available Not Available Not Available nystatin- triamcino lone 100,000 unit/gram -0.1 % topical ointment APPLY TO THE AFFECTED AREA(S) BY TOPICAL ROUTE 2 TIMES PER DAY PRN for vaginal irritati on 08/28 completed Not Available Not Available Not Available pantopraz ole 40 mg tablet,de layed release 08/28 completed Not Available Not Available Not Available clotrimaz ole-betam ethasone 1 %-0.05 % topical cream apply by topical route 2 times every day for 2 weeks to the affected and surround ing areas of skin in the morning and evening 04/26 completed Prescrib ed Elsewher e: No Locat ion: Aline [facility] odify By: [email or web address] Encounte r DateTime : 04/13/20 17 03:00:00 PM Not Available Not Available Not Available levothyro xine 150 mcg tablet TAKE 1 TABLET BY MOUTH DAILY active Not Available Not Available No t Available hydroxyzi ne HCl 25 mg tablet TAKE 1 TABLET BY MOUTH EVERY 8 HOURS NEEDED FOR SLEEP active Not Available Not Available No t Available levothyro xine 200 mcg tablet take 1 tablet (200MCG) by oral route every day 04/13 completed Prescrib ed Elsewher e: No Locat ion: [place] [facility] odify By: [email or web address] E ncounter DateTime : 07/26/19 10:30:00 AM Not Available Not Available Not Available methylpre dnisolone 4 mg tablets in a dose pack TAKE 6 TABLETS ON DAY 1 DIRECTED ON PACKAGE AND DECREASE BY 1 TAB EACH DAY FOR A TOTAL OF 6 DAYS 01/18 completed Not Available Not Available Not Available sertralin e 50 mg tablet TAKE 1 TABLET BY MOUTH EVERY DAY 08/28 completed Not Available Not Available Not Available escitalop marium 10 mg tablet 08/28 completed Not Available Not Available Not Available cyclobenz aprine 5 mg tablet TAKE 1 TABLET BY MOUTH THREE TIMES A DAY NEEDED FOR MUSCLE SPASMS 08/28 completed Not Available Not Available Not Available aripipraz ole 5 mg tablet TAKE 1 TABLET BY MOUTH DAILY active Not Available Not Available No t Available bupropion HCl XL 300 mg 24 hr tablet, extended release TAKE 1 TABLET BY MOUTH EVERY MORNING active Not Available Not Available No t Available bupropion HCl XL 150 mg 24 hr tablet, extended release TAKE 1 TABLET BY MOUTH EVERY DAY IN THE MORNING 10/07 completed Not Available Not Available Not Available aripipraz ole 2 mg tablet TAKE 1 TABLET BY MOUTH DAILY active Not Available Not Available No t Available Blisovi Fe 05/26 (28) 1 mg-20 mcg (21)/75 mg (7) tablet TAKE 1 TABLET BY MOUTH EVERY DAY active Not Available Not Available No t Available ID NOW COVID-19 Test Kit TEST DIRECTED TODAY 08/28 completed Not Available Not Available Not Available Nextstell is 3 mg-14.2 mg (28) tablet Take 1 tablet every day by oral route. 07/21 completed Not Available Not Available Not Available Vitals Date Recorded Body height Body mass index (BMI) Body weight Systolic And Diastolic Provider Name and Address Organization Details Last Updated DateTime 07/14/2024 160.02 cm 29.4 kg/m2 48912.33 g 124/82 mm[Hg] Kristi Gonzales [facility] 07/14/2024 10:10:18 Date Recorded Body height Body mass index (BMI) Body weight Systolic And Diastolic Provider Name and Address Organization Details Last Updated DateTime 08/27/2024 160.02 cm 28.3 kg/m2 20385.78 g 118/75 mm[Hg] Mariam Bernabe [facility] 08/27/2024 17:59:45 Date Recorded Body height Body mass index (BMI) Body weight Systolic And Diastolic Provider Name and Address Organization Details Last Updated DateTime 08/28/2022 160.02 cm 32.7 kg/m2 51857.43 g 117/78 mm[Hg] Zaria Yony [facility] 08/28/2022 11:01:27 Date Recorded Body height Body mass index (BMI) Body weight Systolic And Diastolic Provider Name and Address Organization Details Last Updated DateTime 10/08/2023 160.02 cm 30.6 kg/m2 28365.48 g 116/80 mm[Hg] Shabana Lopez [facility] 10/08/2023 10:09:54 Social History Question Answer Notes LastModified by Organizat ion Details LastModified Time Tobacco Smoking Status Never Smoker Rula Joseph isatu, [facility] 01/18/2021 18:00:03 Are You Blind Or Do You Have Difficulty Seeing? No Information n ot available 03/11/2021 What Is Your Level Of Caffeine Consumption? Occasional Information not available 03/11/2021 In The 14 Days Before Symptom Onset, Have You Had Close Contact With A Laboratory-confirm ed COVID-19 While That Case Was Ill? No Information n ot available 10/08/2023 In The 14 Days Before Symptom Onset, Have You Had Close Contact With A Person Who Is Under Investigation For COVID-19 While That Person Was Ill? No Information not available 10/08/2023 Have You Been To An Area Known To Be High Risk For COVID-19? No Information not available 10/08/2023 Are You Deaf Or Do You Have Serious Difficulty Hearing? No Information not available 03/11/2021 What Type Of Diet Are You Following? REGULAR Information n ot available 03/11/2021 Do You Use Your Seat Belt Or Car Seat Routinely? Yes Information not available 03/11/2021 Do You Have Smoke And Carbon Monoxide Detectors In Your Home? Yes Information not available 03/11/2021 Do You Use Sunscreen Routinely? Yes Information not available 03/11/2021 Do You Have Difficulty Walking Or Climbing Stairs? No Information not available 08/28/2022 Sex: Unknown Functional Status Question Answer Note LastModified by Organizat ion Details LastModified Time Do you use any illicit or recreational drugs? No Information not available 03/11/2021 What is your level of alcohol consumption? Occasional Information not available 03/11/2021 Are you able to walk? YESWOREST Information not available 03/11/2021 Are you able to care for yourself? Yes Information n ot available 08/28/2022 Do you have difficulty dressing or bathing? No Information not available 08/28/2022 What is your exercise level? Moderate Information not available 03/11/2021 Mental Status Question Answer Note LastModified by Organization D etails LastModified Time Do you feel stressed (tense, restless, nervous, or anxious, or unable to sleep at night)? [id number] Information not available 03/11/2021 Family History Relationship Description Onset Age of this Age Resolved Age Notes LastModified by Organization Details LastModified Time Maternal Grandfather Hypertensive disorder Not available 2020 17:59:35 Paternal Grandfather Hypertensive disorder [email or web address] Not available 2020 17:59:39 Paternal Grandmother Hypertensive disorder [email or web address] Not available 2020 17:59:43 Paternal Grandmother Malignant tumor of breast [email or web address] Not available 2020 17:59:52 Medical History Condition Response Allergies (Food, seasonal, environmental ) N Other N Breast Cancer N Drug/Latex Allergies/Reactions N Blood Transfusion N Dermatologic Disorders N Lung Disease N Defects or Inherited Disease N Breast Problem N Gestational Diabetes N Hematologic disorders N Anesthesia Complications N History of STI N Deep Vein Thrombosis N Polycystic ovary syndrome N Anxiety Disorder N Autoimmune disease N Arthritis N Infertility N Polyps N Acid Reflux (GERD) N History of abnormal pap N Cancer N Stroke N Varicosities N Neurologic/Epilepsy N Endometriosis N High Cholesterol N Headaches N Fibromyalgia N Kidney Disease N Heart Problems N Kidney or Bladder Problems N Thyroid Problems Y GI Problems N Eating Disorder N Anemia N Art (IVF or FET) N Psychiatric Illness N Ovarian Cancer N Diabetes N Pulmonary (TB, Asthma) N Hepatitis/Liver Disease N No Past Medical History N Eczema N Urinary Tract Infection N Abuse/Domestic Violence N Asthma N Trauma/Violence N Depression/ depression Y Heart Disease N Pre-Eclampsia N Hypertension N Osteoporosis N Thrombophilias N Gynecological History Statement/Question Response Abnormal Pap N Flow Heavy Date of Last Mammogram Date of LMP 08/26/2024 On BCP's at Conception? N STIs/STDs Y Was last menstrual period normal N HPV Vaccine N Colposcopy Duration of Flow (days) 4 Current Control Method Tubal Ligat ion Age at First Child 25 Are cycles usually normal N Date of Last Colonoscopy Frequency of Cycle (Q days) 15 Most Recent Bone Density Sexually Active? Y Menses Monthly Y Age of first menstrual cycle 13 Date of Last Pap Smear 10/08/2023 Sexual Problems? N LMP Approximate Obstetrics History GPAL:G 4 P 3 0 1 3 Type Value Full Term 3 Induced 1 Living 3 Total 4 Past Encounters Encounter ID Performer Location Encounter Start Date Encounter Closed Date Diagnosis/Indication Diagnosis SNOMED-CT Code Diagnosis ICD10 Code Diagnosis Note [id number] Melissa Fitzgerald MD [facility] [address] [address] 09/22/2019 14:43:47 09/22/2019 16:01:14 Vaginitis 07514086 N76.0 Affirm done. No medication sent today, will await results. Mammogram order given per her request. Last annual exam in 2017 so she should return in near future for annual. Contracept ion: s/p BTL Venereal d isease screening 230227870 Z11.3 Check cultures, declines blood STD testing [id number] [facility] [address] [address] 03/11/2021 12:14:18 03/11/2021 13:07:49 Genital herpes simplex 51857298 A60.9 Will increase dosage & extend Valtrex PO treatment. Sent in topical lidocaine ointment & mycolog to help keep her comfortabl e while medication is taking effect. Declined need for further STD screening. Hx of HSV-1 genital Time spent in visit is a total of 15 mins with at least 50% of visit consisting of counseling and review of plan of care.Addit ional precaution anupama measures were taken to minimize potential exposure to the Covid-19 virus during this patient s visit, including available hand brusher machine upon arrive, temperatur e check and being asked a series of screening questions. All staff wore face coverings during this encounter, as well as provided additional cleaning and sanitizing of all surfaces, including countertop s, pens, chairs, door handles, light switches, etc, prior to and following the patient s visit. [id number] [facility] [address] [address] 08/28/2022 10:52:11 08/28/2022 11:28:06 Axillary lymphadenopathy 336229092 R59.0 bilateral axillary lymphadeno doyle, most prominent on leftdiagno stic imaging ordered Vaginitis 34239503 N76.0 suspect yeastvagin itis panel sentRx sent, R/B/A discussedv ulvar care guidelines discussed in-depth Furuncle of vulva 343062 006 N76.4 furuncle of vulvarx sentvulvar care guidelines discussedR TC if symptoms persist past treatment Gynecologi c examination 10416807 Z01.419 Suggested Calcium with Vitamin D 1200-1500m g daily. Patient advised to get an annual flu shot in the fall and she could obtain at [facility] or [facility] take care clinic. Also to obtain TDap vaccinatio n if you have not had one in the last 10 years. Recommend yearly mammograms . Encouraged monthly self breast exams. Encourage safe sexual practices, to use condoms and limit partners if not already in a monogamous relationsh ip. Engage in daily exercise of low impact aerobic exercise 45-60 minutes 4-5 times weekly. Avoid tobacco and illicit drugs as well as using moderation with alcohol intake less than 1-2 8 oz beverages daily. This lifestyle behavior pattern will lead to less health conditions and longer life span. If BMI greater than 25 weight watchers or dietary consult advised. All questions have been answered. Patient appears to understand informatio n, but if you have any questions please call or respond to this email. [facility] - BTLhx of abnormal pap 10+, no procedures requiredla pap 2017 - normalpap done todaySTI testing added to papblood STI panel declinedUT D with PCP for routine labs Time spent in visit is a total of 35 mins with at least 50% of visit consisting of counseling and review of plan of care. Venereal d isease screening 284264850 Z11.3 [id number] [facility] [address],[place] [address] 10/08/2023 10:00:44 10/08/2023 11:48:40 Gynecologic examination 82652731 Z01.419 Z11.51 [facility] - BTLpap updateddec lined STI screenenco uraged to schedule repeat diagnostic mammogram : number given to ptcolon CA screening discussed, she would like cologuard, order placedrout ine labs UTD/PCPRTC in 1 yr or sooner if needed Patient advised to get an annual flu shot in the fall and she could obtain at [facility] or [facility] clinic. Also to obtain TDap vaccinatio n if you have not had one in the last 10 years. Recommend yearly mammograms . Encouraged monthly self breast exams. Encourage safe sexual practices, to use condoms and limit partners if not already in a monogamous relationsh ip. Engage in regular exercise. Avoid tobacco and illicit drugs. This lifestyle behavior pattern will lead to less health conditions and longer life span. If BMI greater than 25 dietary consult advised. All questions have been answered. Patient appears to understand informatio n, but if you have any questions please call or respond to this email. 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 [id number] Shaan Del Real MD [facility] [address] [address] 08/12/2024 09:44:28 08/12/2024 10:42:54 Irregular periods 83162995 N92.6 [id number] Shaan Del Real MD [facility] [address] [address] 08/27/2024 17:31:22 08/29/2024 10:39:43 Menorrhagia 581687406 N92.0 This patient is a 48-year-ol d female presents for heavy vaginal bleeding. She has longstandi ng very heavy bleeding. Her menses are regular. However, they require double protection . Patient has accidents, getting blood on her bedding and clothing. Is affected work. She changes a pad or tampon every hour. She leaks blood around the pad and tampon. This bleeding has a profound impact on her quality of life and her activities of daily living. we discussed treatment options in detail, including medical, surgical treatments . Ultimately we agreed to proceed with endometria l ablation. The patient understand s the procedure. The procedure was described to the patient in great detail. the patient also understand s the risks. The risks were also explained in detail. She understand s that injuries May occur during surgery. She understand s these injuries can result in hospitaliz ation, more surgery, and severe illness. She understand s there is risk of hemorrhage and infection. I spent over 30 minutes on her care in total. Health Concerns Section Related Observation LastModified by Organization Detai ls LastModified Time None Recorded Concern Status LastModified by Organization Details LastModified Time None Recorded Advance Directives Directive None Recorded Payers Insurance Date Sequence Insurance Name Policy Number Policy Christopher Covered Member ID Christopher Member ID Guarantor Name 11/10/2024 1 [employer] - ALLIED BENEFITS - OPEN ACCESS [id number] Roseline Mcghee [id number] Roseline Mcghee 12/31/2020 1 [employer] [id number] Roseline Mcghee [id number] Roseline Mcghee 07/07/2024 1 [place] [id number] Roseline Mcghee [id number] Roseline Mcghee 08/28/2022 1 [facility] [id number] Roseline Mcghee [id number] Roseline Mcghee 11/10/2024 1 [id number] Roseline Mcghee [id number] Roseline Mcghee 10/05/2023 1 [place] [id number] Roseline Mcghee [id number] Roseline Mcghee Notes Date Note Type Note Provider Name and Address Organization Details Recorded Time 08/28/2022 text/html Annual GYNReport ed bypatient.Menstrual cycle:Normal menses Urinary symptoms:No hematuria; No incontinence Vulva:No genital lesion; tender bump on and off x 1 month, has had some drainage Vagina:White;Vaginal itching Breast:No breast pain; No breast lump; No nipple discharge Current Contraception:Tubal ligation Sexual complaints:No sexual complaints; No pain during intercourse; Normal libido Menopausal Symptoms:No menopausal symptoms; Normal vaginal lubrication Psychological symptoms:No depression; No anxiety; No PMDD Preventive measures:Encourage self breast examination; Encourage regular exercise; Encourage no tobacco use; Encourage regular mammograms starting age 40; Needs to schedule mammogram [facility] [address], [place], [address], [facility] 08/28/2022 11:27:14 10/08/2023 text/html Annual GYNReport ed bypatient.Menstrual cycle:Normal menses Urinary symptoms:No hematuria; No incontinence Vulva:No genital lesion Vagina:Normal vaginal discharge Breast:No breast pain; No breast lump; No nipple discharge Current Contraception:Satisf ied with current contraception; Tubal ligation Sexual complaints:No sexual complaints; No pain during intercourse; Normal libido Menopausal Symptoms:No menopausal symptoms; Normal vaginal lubrication Psychological symptoms:No depression; No anxiety; No PMDD Preventive measures:Encourage self breast examination; Encourage regular exercise; Encourage no tobacco use; Encourage regular mammograms starting age 40; Needs to schedule mammogram; Needs to schedule colonoscopyNotes:47y o WWEh/o abnormal pap 10+ yrs ago, no procedures requiredlast pap 08/2022 : nilm, HPV (-)mammogram 09/2022 : due for repeat diagnostic right breast imaging and screening left mammogram - [facility] and follows with breast specialistno colon CA screening done yetUTD with PCPgenital HSV outbreaks a few times over the past year, takes valtrex with outbreaks- needs refills [facility] [address], [place], [address], [facility] 10/08/2023 11:46:48 07/14/2024 text/html 48yopresents for vaginal discharge/STI testingrecently ended a relationship and would like STI testingnoticed increased clear vaginal discharge a few weeks ago that has since resolvedneg odors, itching, or pelvic painneg n/v/fneg flu-like symptomsBTL for BC, would like to discuss options for hair spring winder/less painful periods denies h/o DVT/PE, HTN, Stroke/GA, cancer, liver disease, or migraines with aurashe does not smoke [facility] [address], [place], [address], [facility] 07/14/2024 11:15:29 08/27/2024 text/html This patient is a 48-year-old female presents for heavy vaginal bleeding. She has longstanding very heavy bleeding. Her menses are regular. However, they require double protection. Patient has accidents, getting blood on her bedding and clothing. Is affected work. She changes a pad or tampon every hour. She leaks blood around the pad and tampon. This bleeding has a profound impact on her quality of life and her activities of daily living. we discussed treatment options in detail, including medical, surgical treatments. Ultimately we agreed to proceed with endometrial ablation. The patient understands the procedure. The procedure was described to the patient in great detail. the patient also understands the risks. The risks were also explained in detail. She understands that injuries May occur during surgery. She understands these injuries can result in hospitalization, more surgery, and severe illness. She understands there is risk of hemorrhage and infection. Shaan Del Real MD [address], [place], [address], [facility] 08/29/2024 09:03:34 OBGyn Episode Ob Episode Information Episode Created Date Number of Fetuses Patient Bloodtype Patient rh Status Prepregnancy Weight lbs Domestic Partner Domestic Partner Phone Father Name Gear Grinder Status 01/19/20 21 1 CLOSED Fetus Data First Name Last Name Admitted to NICU Weight (g) Sex Living Outcome Pediatric Complications Fetus ID Race Codes Race Delivery Type 2919.77 1704 F Full Term [id number] Repeat Leo Calculation Initial Leo Date Initial Exam Date Initial Exam Provider Initial Ultrasound Date Last Menstrual Period Date Ultra Sound Weeks Gestation 0 Eighteen To Twenty Week Leo Update Ultra Sound Date Fundal Height At Umbil Quickening Date Ultra Sound Latest Weeks Gestation Final Leo Confirmed By Final Leo Confirmed Date Final Leo Date Ultra Sound Latest Days Gestation 0 0 Menstrual History Last Menstrual Date Menses Monthly On Bcp Conception Prior Menses Frequency Hcg Plus Date Menarche Onset Age Delivery Information Delivery Date Delivery Type Labor Anesthesia Weeks Gestation Incision Type Labor Labor Length Hrs Delivered By Post Complications Tubal Sterilization Discharge Date Comments 5 40 Discharge Information Feeding Method Contraceptive Method Maternal HG B and HCT Levels Ob Episode Information Episode Created Date Number of Fetuses Patient Bloodtype Patient rh Status Prepregnancy Weight lbs Domestic Partner Domestic Partner Phone Father Name Gear Grinder Status 01/19/20 21 1 CLOSED Fetus Data First Name Last Name Admitted to NICU Weight (g) Sex Living Outcome Pediatric Complications Fetus ID Race Codes Race Delivery Type 3373.36 3704 M Full Term [id number] Primary Leo Calculation Initial Leo Date Initial Exam Date Initial Exam Provider Initial Ultrasound Date Last Menstrual Period Date Ultra Sound Weeks Gestation 0 Eighteen To Twenty Week Leo Update Ultra Sound Date Fundal Height At Umbil Quickening Date Ultra Sound Latest Weeks Gestation Final Leo Confirmed By Final Leo Confirmed Date Final Leo Date Ultra Sound Latest Days Gestation 0 0 Menstrual History Last Menstrual Date Menses Monthly On Bcp Conception Prior Menses Frequency Hcg Plus Date Menarche Onset Age Delivery Information Delivery Date Delivery Type Labor Anesthesia Weeks Gestation Incision Type Labor Labor Length Hrs Delivered By Post Complications Tubal Sterilization Discharge Date Comments 8 41 Discharge Information Feeding Method Contraceptive Method Maternal HG B and HCT Levels Ob Episode Information Episode Created Date Number of Fetuses Patient Bloodtype Patient rh Status Prepregnancy Weight lbs Domestic Partner Domestic Partner Phone Father Name Gear Grinder Status 01/19/20 21 1 CLOSED Fetus Data First Name Last Name Admitted to NICU Weight (g) Sex Living Outcome Pediatric Complications Fetus ID Race Codes Race Delivery Type 2834.95 M Full Term [id number] Repeat Leo Calculation Initial Leo Date Initial Exam Date Initial Exam Provider Initial Ultrasound Date Last Menstrual Period Date Ultra Sound Weeks Gestation 0 Eighteen To Twenty Week Leo Update Ultra Sound Date Fundal Height At Umbil Quickening Date Ultra Sound Latest Weeks Gestation Final Leo Confirmed By Final Leo Confirmed Date Final Leo Date Ultra Sound Latest Days Gestation 0 0 Menstrual History Last Menstrual Date Menses Monthly On Bcp Conception Prior Menses Frequency Hcg Plus Date Menarche Onset Age Delivery Information Delivery Date Delivery Type Labor Anesthesia Weeks Gestation Incision Type Labor Labor Length Hrs Delivered By Post Complications Tubal Sterilization Discharge Date Comments 7 40 Discharge Information Feeding Method Contraceptive Method Maternal HG B and HCT Levels
--- OUTSIDE RECORDS SUMMARY | 2024-11-11 02:16 | XMS_ITS | Encounter Summary ---
Author Organization [facility] Address [address] [place] [address] Phone Care Team Providers Care Roll Handler Name Role Phone Felix Alves MD Primary Care Provider [phone] Reason for Visit * Reason Comments Medication Refill Encounter Details Date Type Department Care Team (Late st Contact Info) Description 07/17/2022 Refill [facility] [address] [place] [address] Felix Alves MD [address] [address] Medication Refill Social History Tobacco Use Types Packs/Day Years Used Date Smoking Tobacco: Former Smokeless Tobacco: Never Alcohol Use Standard Drinks/Week Comments No 0 (1 standard drink = 0.6 oz pur e alcohol) PHQ-2 Answer Date Recorded Total Score - Questions 1-9 0 04/06 Education Answer Date Recorded What is the [...] Telephone Encounter - Gardenia Reno RN - 07/17/2022 4:11 PM CDT Mail order pharmacy. Medication failed the protocol, provider to review and approve the medication order if appropriate. 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 [facility] Showing recent visits within past 365 days [...] Description 11/12/2024 9:30 AM CDT Office Visit [facility] - [facility] Medicine [facility] [address] [place] [address] Felix Alves MD [address] [address] documented as of this encounter Visit Diagnoses Diagnosis Hypothyroidism due to acquired atrophy of thyroid documented in this encounter Additional Health Concerns Assessment Noted Time PHQ-9 Depression Total Score: 0 04/18/20 22 2:00 PM 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
--- OUTSIDE RECORDS SUMMARY | 2024-11-11 02:16 | XMS_ITS | Encounter Summary ---
Author Organization [facility] Address [address] [place] [address] Phone Care Team Providers Care Armorer Technician Name Role Phone Felix Alves MD Primary Care Provider [phone] Reason for Visit * Reason Comments Medication Refill Encounter Details Date Type Department Care Team (Late st Contact Info) Description 05/08/2022 Refill [facility] - Family Medicine [facility] [address] [place] [address] Felix Alves MD [address] [address] Medication Refill Social History Tobacco Use Types [...] on file Sexual Orientation Not on file COVID-19 Exposure Response Date Recorded In the last 10 days, have yo u been in contact with someone who was confirmed or suspected to have Coronavirus/COVID-19? 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 documented as of this encounter Plan of Treatment Upcoming Encounters Date Type Department Care Team (Late st Contact Info) Description 11/12/2024 9:30 AM CDT Office Visit [facility] - Family [facility] [address] [place] [address] Felix Alves MD [address] [address] documented as of this encounter Visit Diagnoses Diagnosis Hypothyroidism due to acquired atrophy of thyroid documented in this encounter Additional Health Concerns Assessment Noted Time PHQ-9 Depression Total Score: 0 04/18/20 22 2:00 PM CONSTRUCTION CARPENTERS HELPER documented as of this encounter Care Teams Armorer Technician Relationship Specialty Start Date End Date Felix Alves MD [address] [address] PCP - General Family Medicine 04/19/15 documented as of this encounter
--- OUTSIDE RECORDS SUMMARY | 2024-11-11 02:16 | XMS_ITS | Clinical Summary ---
Author Organization [facility] Address [address] [place] [address] Phone Care Team Providers Care Labor Relations Director Name Role Phone Felix Alves MD Primary Care Provider [phone] Allergies Active Allergy Reactions Criticality Noted Date Comments Ciprofloxacin Other (see Comments),Vomiting Muscle aches Latex Rash Low Medications buPROPion (WELLBUTRIN) 300 MG TABLET SR 24 HR XL tabletIndication s:Depression, unspecified depression type Take 1 Tablet by mouth every morning. 90 Tablet 1 10/30/2023 Active valACYclovir (VALTREX) 1 GM Tablet take 1 tablet by mouth every day for 5 days Active levothyroxine (SYNTHROID) 150 MCG Tablet Take 1 Tablet by mouth daily. 30 Tablet 5 08/08/2024 Active ARIPiprazole (ABILIFY) 5 MG Tablet Take 1 Tablet by mouth daily. 90 Tablet 3 08/28/2024 Active hydrOXYzine (ATARAX) 25 MG Tablet Take 1 Tablet by mouth every 8 hours as needed for Sleep. 90 Tablet 09/16/2024 Active ibuprofen (MOTRIN) 800 MG Tablet Take 1 Tablet by mouth every 8 hours as needed for Mild or more severe pain. 60 Tablet 1 09/16/2024 Active busPIRone (BUSPAR) 5 MG Tablet Take 1 Tablet by mouth 2 times daily. 60 Tablet 09/16/2024 Active Active Problems Problem Noted Date Diagnosed Date Anemia, normocytic normochromic 07/16/2024 Chronic joint pain 04/20/2023 Vitamin D deficiency 04/20/2023 Mixed hyperlipidemia 07/19/2022 Chest pain 07/01/2020 Obesity (BMI 30-39.9) 11/22/2018 Mood disorder 11/22/2018 Obesity (BMI 30.0-34.9) 12/11/2016 Chronic fatigue 12/31/2015 Depression 12/31/2015 Hypothyroidism 12/31/2015 Encounters Date Type Department Care Team Description 09/16/2024 7:45 AM CDT Office Visit [facility] [address] [place] [address] Rossy Kam, PRODUCT LISTER, MECHANICAL ENERGY ENGINEER Depression, unspecified depression type (Primary Dx); Anxiety; Acute pain of right knee Discharge Disposition: Discharged to home or Selfcare 09/16/2024 Travel 09/08/2024 9:30 AM CDT - 09/08/2024 11:59 PM CDT Hospital Encounter [facility] Ultrasound [address] [place] [address] Felix Alvse MD Discharge Disposition: Discharged to home or Selfcare 09/08/2024 Travel 09/03/2024 Results Follow-Up [facility] [address] [place] [address] Felix Alves MD AMANDA DIAG BILATERAL DIGITAL W CAD W TRISTAN 08/27/2024 Telephone [facility] [address] [place] [address] Felix Alves MD Medication Management 08/26/2024 Transcribe Orders [facility] Mammography [address] [place] [address] Felxi Alves MD Abnormal mammogram (Primary Dx) 08/25/2024 12:59 PM CDT - 08/25/2024 11:59 PM CDT Hospital Encounter [facility] [address] [place] [address] Provider, Not On File Discharge Disposition: Discharged to home or Selfcare 08/25/2024 12:57 PM CDT - 08/25/2024 12:58 PM CDT Hospital Encounter [facility] 1 [facility] [place] [address] Provider, Not On File Discharge Disposition: Discharged to home or Selfcare 08/23/2024 8:30 AM CDT - 08/23/2024 8:40 AM CDT Hospital Encounter [facility] [place] [address] Felix Alves MD Discharge Disposition: Discharged to home or Selfcare 08/23/2024 Travel from Last 3 Months Immunizations Immunization Administration Dates Next Due Covid-19 Vaccine, Vector-nr, Rs-ad26, Pf, 0.5 Ml (JACOBO/J&J) 03/15/2021,03/11/2021 Influenza Vaccine greater than 3 yrs 04/06/2024 Influenza Vaccine, Quadrivalent, PF 04/05/2015 Family History Medical History Relation Name Comments No Known Problems Brother No Known Problems Father No Known Problems Mother No Known Problems Sister Relation Name Status Comments Brother Alive Father Alive Mother Alive Sister Alive Social History Tobacco Use Types Packs/Day Years Used Date Smoking Tobacco: Former Smokeless Tobacco: Never Alcohol Use Standard Drinks/Week Comments No 0 (1 standard drink = 0.6 oz pur e alcohol) [facility] Utilities Answer Date Recorded In the past 12 months has [employer], gas, oil, or water [employer] threatened to shut off services in your home? No 09/16/2024 Social Connection and Isolation Panel Answer Date Recorded In a typical week, how many times do you talk on the phone with family, friends, or neighbors? More than three times a week 09/16/2024 How often do you get togethe r with friends or relatives? Once a week 09/16/2024 How often do you attend chur ch or baptism services? More than 4 times per year 09/16/2024 Do you belong to any clubs o r organizations such as temple groups, unions, fraternal or athletic groups, or school groups? No 09/16/2024 How often do you attend meet ings of the clubs or organizations you belong to? Patient declined 09/16/2024 Are you , , di vorced, , never , or living with a partner? 09/16/2024 AUDIT-C Answer Date Recorded Q1: How often do you have a drink containing alc ohol? 2-4 times a month 09/16/2024 Q2: How many drinks containi ng alcohol do you have on a typical day when you are drinking? 3 or 4 09/16/2024 Q3: How often do you have si x or more drinks on one occasion? Less than monthly 09/16/2024 Overall Financial Resource Strain (CARDIA) Answe r Date Recorded How hard is it for you to pa y for the very basics like food, housing, medical care, and heating? Somewhat hard 09/16/2024 PHQ-2 Answer Date Recorded Total Score - Questions 1-9 3 09/04 [facility] - Occupational Stress Questionnaire Answer Date Recorded Do you feel stress - tense, restless, nervous, or anxious, or unable to sleep at night because your mind is troubled all the time - these days? Very much 09/16/2024 Exercise Vital Sign Answer Date Recorde d On average, how many days pe r week do you engage in moderate to strenuous exercise (like a brisk walk)? 4 days Minutes of Exercise per Session Not on file 09/16/2024 Hunger Vital Sign Answer Date Recorded Within the past 12 months, y ou worried that your food would run out before you got the money to buy more. Never true 09/17/19 25 Within the past 12 months, t he food you bought just didn't last and you didn't have money to get more. Never true 09/16/2024 PRAPARE - Transportation Answer Date Re corded In the past 12 months, has l ack of transportation kept you from medical appointments or from getting medications? No 09/04 In the past 12 months, has l ack of transportation kept you from meetings, work, or from getting things needed for daily living? No 09/16/2024 Housing Stability Vital Sign Answer Paul e Recorded In the last 12 months, was t here a time when you were not able to pay the mortgage or rent on time? Patient declined 09/17/19 Number of Times Moved in the Last Year Not on fi le 09/16/2024 Homeless in the Last Year Not on file 2024 Education Answer Date Recorded What is the [...] Sign Reading Time Taken Comments Blood Pressure 120/74 09/16/2024 7:55 AM CDT Pulse 60 09/16/2024 7:55 AM CDT Temperature 36.7 C (98.1 F) 09/16/2024 7:55 AM CDT Respiratory Rate 18 09/16/2024 7:55 AM CDT Oxygen Saturation 93% 09/16/2024 7:55 AM CDT Inhaled Oxygen Concentration - - Weight 71.9 kg (158 lb 8 oz) 09/16/2024 7:55 AM CDT Height 160 cm (5' 3) 09/16/2024 7:55 AM CDT Body Mass Index 28.08 09/16/2024 7:55 AM CDT Plan of Treatment Upcoming Encounters Date Type Department Care Team (Late st Contact Info) Description 11/12/2024 9:30 AM CDT Office Visit [facility] [address] [place] [address] Felix Alves MD [address] [address] Health Maintenance Due Date Last Done Comments Hepatitis C Virus (HCV) Screening 1977 TdaP Immunization 1977 Hepatitis B Immunization (1 of 3 - 19+ 3-dose series) 1996 Cologuard 2022 Colonoscopy 2022 Colorectal Cancer Screening 2022 Immunochemical Fecal Occult Blood 2022 SARS-COV-2 Immunization ( season) 2024 03/15/2021, 03/11/2021 Influenza Immunization (#1) 2025 12/0 05/2023, 04/05/2015 Mammogram 08/23/2025 08/23/2024, 10/03/2022, 10/03/2022 Pap Smear 10/07/2026 10/08/2023 Cervical Cancer Screening (CCS) 10/07/2028 HPV/Cotest 10/07/2028 10/08/2023 Respiratory Syncytial Virus (RSV) Immunization (Adult) (1 - 1-dose 75+ series) 2052 Discussion re Starting/Frequency of Mammograms Completed 08/23/2024, 10/03/2022, 10/03/2022 Human Papillomavirus (HPV) Immunization Aged Out No longer eligible b ased on patient's age to complete this topic Meningococcal Immunization (ACWY) Aged Out No longer eligible b ased on patient's age to complete this topic Pneumococcal Immunization Combined Aged Out No longer eligible b ased on patient's age to complete this topic Rotavirus Immunization Aged Out No lo nger eligible based on patient's age to complete this topic Procedures Procedure Name Priority Date/Time Associated Diagnosis Comments AMANDA US BREAST LIMITED RT Routine 09/08/2024 10:39 AM CDT Abnormal mammogram [facility] US REFERENCE IMAGES FOR IMAGE IMPORT Routine 08/25/2024 12:59 PM CDT AMANDA REFERENCE IMAGES FOR IMAGE IMPORT Routine 08/25/2024 12:57 PM CDT [facility] DIAG BILATERAL DIGITAL W CAD W TRISTAN Routine 08/23/2024 8:50 AM CDT Abnormal mammogram HUMAN PAPILLOMA VIRUS (HPV) 10/08/2023 12:00 AM CDT PATHOLOGY CYTOLOGY GRADUATE TEACHING ASSISTANT 10/08/2023 12:00 AM CDT from Last 3 Months or Most Recently Relevant to Health Maintenance Results * [facility] US BREAST LIMITED RT (09/08/2024 10:39 AM CDT) Anatomical Region Laterality Modality breast Right Ultrasound 09/08/2024 10:0 9 AM CDT Narrative 09/08/2024 1:36 PM CDT - [facility] US BREAST LIMITED RT LIMITED ULTRASOUND OF RIGHT BREAST: 09/08/2024 CLINICAL: Patient returns for additional imaging over a suspected mass in the right breast to be evaluated with Ultrasound. COMPARISONS: No prior exams were available for comparison. Color flow ultrasound of the right breast was performed. FINDINGS: Targeted sonographic evaluation of the right breast was performed. The previously seen hypoechoic lesion at the 7 o'clock position, 7 cm from the nipple is stable, measuring 3 mm in size. This is likely a complex cyst and is now considered benign. Incidentally noted is a 4 mm cyst at the 7 o'clock position, 6 cm from the nipple and 4 mm cyst at the 8 o'clock position, 7 cm from the nipple. No suspicious lesions are seen. IMPRESSION: BENIGN The previously seen lesion in the right breast is stable and is now considered benign. There is no sonographic evidence of malignancy. A 1 year screening mammogram is recommended. The results and recommendations were discussed with the patient. The patient will be entered into a reminder system with a target due date of 1 year for her next screening exam. Electronically signed by: Uma Espinosa M.D. ll/:09/08/2024 10:45:13 Sap Architect(s): Tnoya Phillips RDMS OBGYN, [facility] letter sent: Normal Exam Reading location: [address] Ultrasound BI-RADS: Category 2: Benign Procedure Note Uma Espinosa MD - 09/08/2024 - [facility] US BREAST LIMITED RT LIMITED ULTRASOUND OF RIGHT BREAST: 09/08/2024 CLINICAL: Patient returns for additional imaging over a suspected mass in the right breast to be evaluated with Ultrasound. COMPARISONS: No prior exams were available for comparison. Color flow ultrasound of the right breast was performed. FINDINGS: Targeted sonographic evaluation of the right breast was performed. The previously seen hypoechoic lesion at the 7 o'clock position, 7 cm from the nipple is stable, measuring 3 mm in size. This is likely a complex cyst and is now considered benign. Incidentally noted is a 4 mm cyst at the 7 o'clock position, 6 cm from the nipple and 4 mm cyst at the 8 o'clock position, 7 cm from the nipple. No suspicious lesions are seen. IMPRESSION: BENIGN The previously seen lesion in the right breast is stable and is now considered benign. There is no sonographic evidence of malignancy. A 1 year screening mammogram is recommended. The results and recommendations were discussed with the patient. The patient will be entered into a reminder system with a target due date of 1 year for her next screening exam. Electronically signed by: Uma Espinosa M.D. ll/:09/08/2024 10:45:13 Sap Architect(s): Tonya Phillips, LEENA OBGYBrandie, [facility] letter sent: Normal Exam Reading location: [facility] Ultrasound BI-RADS: Category 2: Benign us Felix Alves MD IMG MAMMO ORDERABLES Kathi l Result * [facility] US REFERENCE IMAGES FOR IMAGE IMPORT (08/25/2024 12:59 PM CDT) us Not On File Provider IMG MAMMO ORDERABLES Final Result * AM[facility]DA REFERENCE IMAGES FOR IMAGE IMPORT (08/25/2024 12:57 PM CDT) us Not On File Provider IMG MAMMO ORDERABLES Final Result * AMANDA DIAG BILATERAL DIGITAL W CAD [...] Comparison is made to exams dated: 10/03/2022 [facility] and 07/03/2011 [facility]. BREAST TISSUE:There are scattered areas of [...] signed by: Uma Espinosa M.D. ll/:09/01/2024 11:37:48 Sap Architect(s): RT Israel(R)(M), [facility] letter sent: Additional Imaging Reading location: [...] Comparison is made to exams dated: 10/03/2022 [facility] and 07/03/2011 [facility]. BREAST TISSUE:There are scattered areas of [...] signed by: Uma Espinosa M.D. ll/:09/01/2024 11:37:48 Sap Architect(s): RT Israel(R)(M), [facility] letter sent: Additional Imaging Reading location: [place] Mammogram BI-RADS: Category 0: Incomplete: Need Additional Imaging Evaluation Felix Alves MD IMG MAMMO ORDERABLES Kathi l Result * PATHOLOGY CYTOLOGY GRADUATE TEACHING ASSISTANT (10/08/2023 12:00 AM CDT) 10/08/2023 us Provider Scan PATHOLOGY/CYTOLOGY ORDERABLES Fi nal Result SCAN * HUMAN PAPILLOMA VIRUS (HPV) (10/08/2023 12:00 AM CDT) 10/08/2023 us Provider Scan LAB SEND OUTS Final Result SCAN from Last 3 Months or Most Recently Relevant to Health Maintenance Insurance [employer] Care Teams Labor Relations Director Relationship Specialty Start Date End Date Felix Alves MD [address] [address] PCP - General Family Medicine 04/19/15
--- OUTSIDE RECORDS SUMMARY | 2024-11-11 02:16 | XMS_ITS | Encounter Summary ---
Author Organization [facility] Address [address] [place] [address] Phone Care Team Providers Care Sweetbread Trimmer Name Role Phone Felix Alves MD Primary Care Provider [phone] Reason for Visit * Reason Comments Medication Refill Encounter Details Date Type Department Care Team (Late st Contact Info) Description 06/20/2022 Refill [facility] [address] [place] [address] Josue Pineda, HEADING PINNER, [employer] [address] [address] Medication Refill Social History Tobacco Use Types [...] Telephone Encounter - Gardenia Reno RN - 06/20/2022 11:51 AM CST Images from the original note were not included. Sertraline HCl Dispensed Days Supply Quantity Provider Pharmacy SERTRALINE HCL 50 MG TABS 06/02/2022 90 90 Tablet Felix Alves MD [facility], [facility] SERTRALINE HCL 50 MG TABLET 05/29/2022 30 30 Each Josue Pineda APRN, [facility]/pharmacy #[id number] - G EQUIN DECORATOR documented in this encounter Plan of Treatment Upcoming Encounters Date Type Department Care Team (Late st Contact Info) Description 11/12/2024 9:30 AM CDT Office Visit [facility] [address] [place] [address] Felix Alves MD [address] [address] documented as of this encounter Visit Diagnoses Diagnosis Depression, unspecified depression type documented in this encounter Additional Health Concerns Assessment Noted Time PHQ-9 Depression Total Score: 0 04/18/20 22 2:00 PM MANNEQUIN DECORATOR documented as of this encounter Care Teams Sweetbread Trimmer Relationship Specialty Start Date End Date Felix Alves MD [address] [address] PCP - General Family Medicine 04/19/15 documented as of this encounter
[2024-11-11 06:40] VITALS: BP 118/71; PULSE 65; RESP 18; TEMP 36.7; O2SAT 100
[2024-11-11 07:06] VITALS: BMI 28.3
[2024-11-11 07:07] LABS: BEDSIDEPREGUCG Negative (Negative)
--- NOTE | 2024-11-11 07:11 | P.PNAN_ITS ---
Anes - Initial Pre Proc Eval Procedure: Operation Date: 11/11/24 08:30 Proposed Procedures p Hysteroscopy with Keisha Endometrial Ablation - Shaan Del Real MD Date/Time: 11/11/24 07:11 Surgeon: Shaan Del Real MD Pre Op Diagnosis: Menorrhagia with regular cycle Patient Data Age: 48 Gender: F Height: 1.6 m Weight: 72.7 kg Allergies Allergy/AdvReac Type Severity Reaction Status Date / Time ciprofloxacin Allergy Mild Muscle Pain Verified 11/11/24 07:03 latex Allergy Mild Rash Verified 11/11/24 07:03 Home Medications ?Medication ?Instructions ?Recorded ?Confirmed ?Type aripiprazole 2 mg tablet 2 mg PO DAILY 11/06/24 11/11/24 History bupropion HCl 300 mg 24 hr tablet, 300 mg PO DAILY 11/06/24 11/11/24 History extended release levothyroxine 150 mcg tablet 150 mcg PO DAILY 11/06/24 11/11/24 History Laboratory Tests 11/11/24 06:55 POC Urine HCG, Qual Negative (Negative) Patient hx anesthesia problems: none Family hx anesthesia problems: none Results Review: All pre-operative results and documents have been reviewed as part of the pre- operative evaluation. PMFSH Past Medical History Medical History (Updated 11/11/24 @ 07:12 by Misbah Laurent MD) Overweight Hypothyroidism Surgical History Surgical History (Updated 11/11/24 @ 07:12 by Misbah Laurent MD) H/O nasal septoplasty History of section History of cholecystectomy Social History Social History (Updated 11/11/24 @ 07:12 by Misbah Laurent MD) Smoking status: Current every day smoker Alcohol intake: never Living arrangements: with family Anes - Eval Final PreProcedure Day of Procedure 11/11/24 07:11 Patient weight: overweight Heart: regular rate and rhythm Lungs: clear to auscultation Airway: Mallampati scale class II Neurological: alert and oriented Last oral intake: >/= 8 hours ASA classification: II Emergent: no Anesthetic plan: proceed Anesthesia type and monitoring: general GIVS and standard monitoring Results Review: All pre-operative results and documents have been reviewed as part of the pre- operative evaluation. Informed Consent: The patient's anesthetic plan and its attendant risks and benefits were discussed with the patient/family/POA. Questions were solicited and answers provided to the satisfaction of the patient/family/POA.
[2024-11-11] MEDS: ACETAMINOPHEN 500 MG TABLET 1000 MG PO (07:30)
[2024-11-11] MEDS: LACTATED RINGERS 1,000 ML 30 ML IV CONT (07:30)
--- NOTE | 2024-11-11 08:23 | P.HP_ITS ---
H&P: HPI History of Present Illness Date/Time: 11/11/24 08:23 Chief Complaint: Heavy vaginal bleeding Narrative: This patient is a 48-year-old female with severe menorrhagia. We have agreed to perform endometrial ablation with hysteroscopy. She understands risks, benefits, and alternatives. She has completed the informed consent process is ready to proceed The patient understands the details of the procedure. The procedure has been explained in detail. She understands the risks. She understands that injuries may occur that result in hospitalization, more surgery, and severe illness. She understands risk of hemorrhage and infection. She denies any chest pain or shortness of breath. She denies any nausea, vomiting, fever, chills. Review of Systems Review of Systems: All systems reviewed & are unremarkable except as noted in HPI and below Constitutional: Constitutional: Denies chills, Denies fatigue, Denies fever(s) and Denies weakness Eyes: Eyes: Denies blurry vision, Denies change in vision, Denies loss of peripheral vision, Denies loss of vision, Denies other visual disturbances and Denies eye pain ENT: Denies vertigo, Denies dizziness, Denies hearing loss, Denies mouth pain, Denies nasal obstruction, Denies neck mass and Denies neck pain Cardiovascular: Cardiovascular: Denies chest pain, Denies diaphoresis, Denies syncope, Denies leg edema and Denies dyspnea Respiratory: Respiratory: Denies chest congestion, Denies cough, Denies hemoptysis, Denies dyspnea and Denies wheezing Gastrointestinal: Gastrointestinal: Denies abdominal pain, Denies constipation, Denies diarrhea, Denies nausea and Denies vomiting Genitourinary: Genitourinary: Denies hematuria, Denies change in libido, Denies nocturia, Denies genital lesions, Denies flank pain and Denies urinary urgency Musculoskeletal: Musculoskeletal: Denies abnormal gait, Denies back pain, Denies myalgias, Denies arthralgias, Denies joint swelling, Denies muscle weakness and Denies neck pain Integumentary/Breasts: Skin/Breast: Denies swelling, Denies breast pain, Denies breast mass, Denies dry skin, Denies nipple discharge, Denies unusual bruising and Denies jaundice Neurologic: Denies Neuro-related abnormal movements, Denies Abnormal speech present, Denies abnormal gait, Denies behavioral changes, Denies confusion, Denies vertigo, Denies dizziness, Denies syncope, Denies loss of vision, Denies memory loss, Denies convulsions and Denies weakness Psychiatric: Psychiatric: Denies abnormal sleep pattern, Denies behavioral changes, Denies change in libido, Denies confusion, Denies depression, Denies anhedonia and Denies memory loss Endocrine: Endocrine: Reports no additional endocrine complaints, Denies change in libido and Denies fatigue Hematologic/Lymphatic: Hematologic/Lymphatic: Reports no additional hematologic/lymphatic complaints Allergic/Immunologic: Allergic/Immunologic: Reports no additional allergic/immunologic complaints and Denies wheezing [facility] Past Medical History Medical History (Updated 11/11/24 @ 08:24 by Shaan Del Real MD) Overweight Hypothyroidism Surgical History Surgical History (Updated 11/11/24 @ 07:12 by Misbah Laurent MD) H/O nasal septoplasty History of section History of cholecystectomy Social History Social History (Updated 11/11/24 @ 07:12 by Misbah Laurent MD) Smoking status: Current every day smoker Alcohol intake: never Living arrangements: with family Meds Home Medications and Allergies Home Medications ?Medication ?Instructions ?Recorded ?Confirmed ?Type aripiprazole 2 mg tablet 2 mg PO DAILY 11/06/24 11/11/24 History bupropion HCl 300 mg 24 hr tablet, 300 mg PO DAILY 11/06/24 11/11/24 History extended release levothyroxine 150 mcg tablet 150 mcg PO DAILY 11/06/24 11/11/24 History Allergies Allergy/AdvReac Type Severity Reaction Status Date / Time ciprofloxacin Allergy Mild Muscle Pain Verified 11/11/24 07:03 latex Allergy Mild Rash Verified 11/11/24 07:03 Vital Signs Vital Signs - 24 hr 11/11/24 06:40 Temperature 98.1 F Pulse Rate 65 Respiratory Rate 18 Blood Pressure 118/71 Pulse Oximetry 100 Oxygen Delivery Room Air Exam Const: General: cooperative, healthy appearing, comfortable and no acute distress Orientation/consciousness: oriented to person, oriented to place and oriented to time HENMT: Head: normal to inspection Ears: external ears normal Face/Nose/Sinus: Normal external nose present and normal facial exam Face and sinus: normal facial exam Eyes: General: appearance normal, both eyes and all related structures Neck: Neck: normal visual inspection, trachea midline and supple Resp: Auscultation: clear to auscultation bilaterally, no crackles, no rales, no rhonchi and no wheezes Cardio: Rate: regular rate Rhythm: regular rhythm Heart sounds: no click, no murmurs and no rubs GI: GI Palp: No abdominal tenderness, No Soft to palpation, No Tenderness to palpation present (GI) and No Palpable mass present Auscultation: normal bowel sounds Skin: General skin exam: normal color and no rashes or lesions noted Neuro: General: oriented to person, oriented to place and oriented to time Extrem: General: normal to inspection, no joint enlargement, no clubbing, cyanosis or edema, no pedal edema and no calf tenderness Psych: Appearance: grossly normal Mental Status: mental status grossly normal Speech and movement: Normal speech and movement present Assessment and Plan Assessment and plan (1) Menorrhagia: Code(s): N92.0 - Excessive and frequent menstruation with regular cycle Status: Acute Plan This patient is a 48-year-old female with severe menorrhagia. We have agreed to perform endometrial ablation with hysteroscopy. She understands risks, benefits, and alternatives. She has completed the informed consent process is ready to proceed
--- NOTE | 2024-11-11 08:25 | WPDHPUPDATE1 ---
History and Physical Update Update Date/Time: 11/11/24 08:25 History and Physical has been reviewed, including an updated exam of the patient. There are NO changes in the patient's condition. Risks, benefits, and alternatives have been discussed and questions answered. Patient agrees to proceed with procedure.
--- NOTE | 2024-11-11 08:48 | S_PTH ---
PATIENT: Roseline Mcghee LOC: [facility] U#:[id number] AGE/SX: 48/F ROOM: RE11/11/[address]: Shaan Del Real MD : 1975 BED: DIS: 11/11/2024 SPEC #: [id number] RECD: 11/11/24 10:44 STATUS: YISSEL REChas #: [id number] AKUA: 11/11/24 08:[address]: Shaan Del Real DEPT: [facility] Surgical RECD BY: Kuldeep Colon ENTERED: 11/11/24 10:45 SP TYPE: Surgical OTHR DR: Felix AlvesMD Tissues: A - Endometrial Curettings Procedures: Hematoxylin and Eosin Stain Gross and Microscopic Level 4
[2024-11-11] MEDS: KETOROLAC 30 MG/ML VIAL (*BKC) IV PUSH (08:53)
[2024-11-11 08:58] VITALS: BP 104/65; PULSE 59; RESP 12; O2SAT 100
--- NOTE | 2024-11-11 09:02 | P.OP_ITS ---
Procedure Note - Detailed Date of Procedure 11/11/24 Pre-op Diagnosis Menorrhagia with regular cycle Post-op Diagnosis Same Procedure Performed Hysteroscopy D&C Surgeon Shaan Del Real MD Anesthesia MAC Indications abnormal uterine bleeding Description of Procedure the patient was taken the operating room. She was prepped and draped in the dorsal lithotomy position after induction of mac anesthesia. A speculum was placed in the vagina. The cervix was grasped with a tenaculum. The cervix was dilated about 1 cm. The hysteroscope was inserted. The intrauterine cavity and endocervix were evaluated. Hysteroscope was withdrawn. A medium-size curet te was used to curettage all the surfaces were within the endometrial cavity. the sample was collected on Telfa and sent to pathology. The hysteroscope was reinserted and the above findings were noted. Patient tolerated the procedure well. The speculum and tenaculum were removed. She was taken recovery room in stable condition. Sponge lap and needle counts were correct x2. Estimated Blood Loss 40 Drains No Packing No Pathology Yes Complications No immediate complications Condition Stable Disposition PACU
--- NOTE | 2024-11-11 09:03 | W.PM.PROC2 ---
Procedure Note - Detailed Date of Procedure 11/11/24 Pre-op Diagnosis Menorrhagia with regular cycle Post-op Diagnosis Same Procedure Performed endometrial ablation with hysteroscopy d&c Surgeon Shaan Del Real MD Anesthesia MAC Indications Severe menorrhagia Findings Normal vulva vagina and cervix. Normal endometrium. Description of Procedure The patient was taken to the operating room. She was prepped and draped in the dorsal lithotomy position after induction of mac anesthesia. A speculum was placed in the vagina. Cervix grasped with a tenaculum. The cervix was dilated to about 1 cm. The hysteroscope was inserted. The above findings were noted. Endometrial curettage was performed with a medium-size curette. All surfaces of the endometrium were affected by the curettage. The specimens were collected and sent to pathology. Measurements were taken of the uterus and cervix. The uterine length was then entered into the hand piece of the Keisha device. The device was inserted into the intrauterine cavity. The array of the device was expanded. The balloon cuff was inflated. A good seal was achieved. The energy and safety cycles were initiated and completed. The array was collapsed and the instrument was withdrawn after deflating the balloon cuff. Hysteroscope was reinserted. Above findings were noted. The hysteroscope was removed. The patient tolerated the procedure well. The speculum and tenaculum were removed. She was taken to recovery in stable condition. Sponge lap and needle counts were correct x2. Estimated Blood Loss 40 Pathology Yes Complications No immediate complications Condition Stable Disposition Same day
[2024-11-11 09:25] VITALS: BP 118/66; PULSE 52; RESP 18; O2SAT 100
[2024-11-11 09:45] VITALS: BP 126/73; PULSE 54; RESP 20
== END 2024-11-11 09:50 | disposition home or self-care (01) ==
PROVIDERS: PCP Family Medicine; Visit Provider Obstetrics & Gynecology
PROC: 0U5B8ZZ Destruction of Endometrium, Via Natural or Artificial Opening Endoscopic (ICD-10-PCS; CPT 58563; principal; 2024-11-11 08:30)
DX: N92.0 Excessive and frequent menstruation with regular cycle (principal); E03.9 Hypothyroidism, unspecified; F17.210 Nicotine dependence, cigarettes, uncomplicated; Z98.890 Other specified postprocedural states; Z90.49 Acquired absence of other specified parts of digestive tract
CPT/HCPCS: 58563; 88305; A9270; J1885; J2003; J2250; J2704; J3010; J7120